=== PATIENT | male | born 1945 | race Caucasian/White ===

== ENCOUNTER 2016-11-18 07:43 | Observation (INO) | payer BC ==
[~2016-11-18 07:43] MED LIST: Buffered Lidocaine 0.9% SYRIN* 5 ML/SYR SYRINGE INTRADERM ONE
[2016-11-18] MEDS ORDERED: Buffered Lidocaine 0.9% SYRIN* 5 ML/SYR SYRINGE ONE (08:16)
[2016-11-18] MEDS ORDERED: ceFAZolin 2 GM PREMIX (*) 50 ML IVPB ONE (08:35)
[2016-11-18] MEDS ORDERED: Midazolam* 1 MG/ML 2 ML VIAL (2 MG) ONE (09:10)
[2016-11-18] MEDS ORDERED: fentaNYL* 50 MCG/ML 2 ML VIAL (100 MCG VIAL) ONE ×3 (09:10→12:40)
[2016-11-18] MEDS ORDERED: Thrombin 5,000 UNITS* 1 APPLIC KIT - topical use - TOPICAL ONE (09:47)
[2016-11-18] MEDS ORDERED: Lidocaine 1.5% EPI 1:200,000* 30 ML SDV ONE (09:47)
[2016-11-18] MEDS ORDERED: Bacitracin IV* 50,000 UNITS INJ ONE (09:47)
[2016-11-18] MEDS ORDERED: Rocuronium* 10 MG/ML VIAL ONE (10:10)
[2016-11-18] MEDS ORDERED: Famotidine IV* 10 MG/ML 2 ML (20 mg) ONE (10:33)
[2016-11-18] MEDS ORDERED: Propofol* 10 MG/ML 20 ML BTL IV PUSH ONE (10:33)
[2016-11-18] MEDS ORDERED: Dexamethasone IV* 4 MG/ML 1 ML (4 MG) ONE (10:33)
[2016-11-18] MEDS ORDERED: Lidocaine 2% PF * 5 ML VIAL ONE (10:33)
[2016-11-18] MEDS ORDERED: Ondansetron INJ* 2 MG/ML VIAL IV PRN ×2 (11:19→11:39)
[2016-11-18] MEDS ORDERED: HYDROcodone/ACETAMIN 5-325 MG* 1 TAB PO PRN (11:19)
[2016-11-18] MEDS ORDERED: Acetaminophen TAB* 325 MG PO PRN ×2 (11:19→11:39)
[2016-11-18] MEDS ORDERED: fentaNYL* 50 MCG/ML 2 ML VIAL (100 MCG VIAL) IV PRN (11:19)
[2016-11-18] MEDS ORDERED: PROCHLORPERAZINE INJ 5 MG/ML 2 ML VIAL IV PRN (11:19)
[2016-11-18] MEDS ORDERED: Dextrose 50% Syringe 50 ML* 25 GM/50 ML SYRINGE IV PUSH PRN (12:12)
[2016-11-18] MEDS ORDERED: HYDROcodone/ACETAMIN 5-325 MG* 1 TAB ONE (12:32)
--- NOTE | 2016-11-18 13:30 | CONS ---
CC: NUBIA Philippe; Dr. Hanna * DATE OF CONSULT: 11/18/2016. DATE OF ADMISSION: 11/18/2016. PRIMARY CARE PHYSICIAN: NUBIA Philippe. ATTENDING PHYSICIAN WHILE IN THE HOSPITAL: Dr. Naty Ag (report dictated by Brian Hummel NP). REQUESTING PHYSICIAN IN CONSULT: Dr. Hanna. REASON FOR CONSULTATION: Evaluation and medical management of comorbid medical problems. HISTORY OF PRESENT ILLNESS: Please refer to Dr. Hanna's history and physical for further details. In short, Mr. Moya is a 71-year-old male patient who carries a history of hypertension, hyperlipidemia, diabetes, carotid artery disease, CAD, history of HI in 2006 status post stents, he follows with Dr. Pearson for this. He comes in today for an elective L3-4 lumbar decompressive laminectomy. The patient has been following with Dr. Hanna in the outpatient setting for having some back pain that was failing conservative measures and getting progressively worse and he was having pain with walking, standing, movement improved with sitting and having pain down the right and leg leg, and unable to perform his desired activities and unable to perform job duties. He had been failing conservative therapy. He saw Dr. Hanna. He felt that he would benefit from an L3-4 laminectomy which he underwent today. The patient was evaluated in the PACU. Because of his medical complexity, we were asked to evaluate in consult. He denies having any chest pain, denies having any shortness of breath. He says he just feels a little tires. He denies having any nausea. He says he is not having any shortness of breath. He says he is not having any back pain currently and he says that he does not have any pain in his legs currently as well. Again, because of his complexity, we were asked to evaluate in consult. PAST MEDICAL HISTORY: Significant for: 1. Hypertension. 2. Hyperlipidemia. 3. Diabetes. 4. Coronary artery disease. 5. History of HI. PAST SURGICAL HISTORY: 1. He has had cardiac catheterization times two. 2. He has had back surgery. 3. He has had hernia repair. HOME MEDICATIONS: Include according to the preop list: 1. Omeprazole 20 mg daily. 2. Metformin 850 mg daily. 3. Lovastatin 40 mg daily. 4. Lisinopril/Hydrochlorothiazide one tablet p.o. daily. 5. Gabapentin 300 mg at bedtime. 6. Plavix one tablet p.o. daily. 7. Aspirin one tablet daily, of which he stopped 7 days prior to the surgery. ALLERGIES TO MEDICATIONS: There are no known drug allergies. FAMILY HISTORY: His mother had a history of diabetes and dementia. Father had a history of HI. SOCIAL HISTORY: He is a former smoker. He does not drink alcohol. He is with children. Surrogate decision maker is his . REVIEW OF SYSTEMS: There is no documented fever. He denied having any significant weight change. There was no double vision. There was no ear discharge. He denies having any rhinorrhea. There is no shortness of breath. He denies having any abdominal pain. There was no nausea, no vomiting. There was no dysuria, there was no frequency. There is no seizure, there was no loss of consciousness. There was no pruritus and no skin ulcerations. Review of 14 systems completed, all others negative. PHYSICAL EXAM: General: Mr. Moya is a 71-year-old male patient. He is evaluated in the PACU bed. He does not appear to be in any acute distress. Vital Signs: Blood pressure 101/68, pulse 66, respirations 18, O2 sat 98 percent on 2 liters, temperature 97.0. HEENT: Head atraumatic. Eyes: Sclerae anicteric, not pale, pupils reactive to light. Throat: Oral mucosa appears to be moist, no oropharyngeal erythema. Neck: Supple. Heart sounds: S1, S2. Regular rate and rhythm. No murmurs or gallops. Lungs: Clear to auscultation. No wheezes, rales or rhonchi. Abdomen: Soft, flat, bowel sounds hypoactive. Extremities: Pulses 2+ throughout. He can move his extremities with 5/5 strength. Neurologically: He is awake, alert and oriented times three. He is following commands appropriately. Fabrication Inspector are equal. Tongue midline. He had no gross oral deficits. Skin: Grossly intact with the exception to the lower lumbar spine area. He does have a dressing with a SOHAM drain which is clean, dry and intact. DIAGNOSTIC STUDIES/LAB DATA: Lab preoperatively reveal a sodium 135, potassium 5.3, chloride 107, bicarb 26, BUN 29, creatinine 1.13, glucose 97. He had a preop WBC of 6.8, RBC 4.14, hemoglobin 12.7, hematocrit 38, platelet count 217. He had a preop EKG which showed a sinus bradycardia with a rate of 46. No ST elevation or T-wave inversions were noted. Preop chest x-ray showed no active disease. Old medical records were reviewed. 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 Lexiscan nuclear stress test 2014 showed an EF of 55 percent, no ischemia infarct, asymptomatic. ASSESSMENT AND PLAN: Mr. Moya is a 71-year-old male patient with multiple medical problems, presenting to Dr. Hanna's services today for an elective laminectomy to the L3-4 region of his spine. We were asked to evaluate in consult. Recommendations at this point are: 1. Status post L3-4 laminectomy: I will defer the management of this to Dr. Hanna and his team. 2. Hypertension: His blood pressure here postop has been right around 100 systolic to 96 systolic. I am going to hold his Lisinopril and Hydrochlorothiazide. We can restart this later on in the postoperative setting if his blood pressure does improve. For now we will hold it. 3. Hyperlipidemia: Will continue his Lovastatin. 4. Diabetes: I am going to put him on Lispro sliding scale. When he is discharged, he can go back on his Metformin. 5. Carotid artery disease: I would recommend continuing the Lovastatin and Surgery did continue his aspirin. When it is appropriate, I would get him back on his Plavix, but I will defer that timing to Dr. Hanna and his team. 6. DVT prophylaxis: Will defer to the primary team. 7. Fluid and nutrition: I would recommend a consistent carb diet. 8. Code status: He is a full code. TIME SPENT ON CONSULT: 60 minutes, greater than half that time was spent face-to - face with the patient obtaining my history and physical, other time spent going over the plan of care with the patient and implementing plan of care. I did discuss the plan of care with my attending, Dr. Ag, who is in agreement. BRIAN HUMMEL NP [id number]/[facility] #: [id number] SANDRA
--- NOTE | 2016-11-18 13:40 | RAD ---
INDICATION: Decompressive L3-L4 laminectomy. COMPARISON: October 03, 2016 MRI. Prone crosstable lateral lumbar sacral spine 0934 hours. Tissue retractor and instrument at the level of the L3-L4 facet joints. Multilevel facet joint osteoarthritis. Advanced L5-S1 disc space narrowing. IMPRESSION: Interoperative control films.
[2016-11-18] MEDS: HYDROcodone/ACETAMIN 5-325 MG* 1 TAB PO PRN ×2 (18:19→22:17)
[2016-11-18] MEDS: Insulin LISPRO* 1 UNITS UNIT SUBCUT SCH (18:20)
[2016-11-19] MEDS: HYDROcodone/ACETAMIN 5-325 MG* 1 TAB PO PRN ×2 (03:14→08:17)
[2016-11-19 06:02] LABS: Hematocrit 32 % (42-52); Hemoglobin 11.4 g/dl (14.0-18.0); Mean Corpuscular HGB Conc 35 g/dl (31-36); Mean Corpuscular Hemoglobin 32 pg (27-31); Mean Corpuscular Volume 89 fL (80-94); Mean Platelet Volume 7 um3 (7.4-10.4); Red Blood Count 3.61 10^6/ul (4.0-5.4); Red Cell Distribution Width 13 % (10.5-15); White Blood Count 10.6 10^3/ul (3.5-10.8)
[2016-11-19 06:29] LABS: BUN/Creatinine Ratio 28.3 (8-20); Calcium 8.9 mg/dL (8.6-10.3); EGFR African American 95.8 (>60); EGFR Non-African American 74.5 (>60); Potassium 3.9 mmol/L (3.5-5.0)
--- NOTE | 2016-11-19 07:55 | PN ---
Progress Note - Progress Note Date of Service: 11/19/16 SOAP: Subjective: [This is a 71 year old male s/p decompressive lumbar laminectomy L3-4 and lumbar discectomy L3-4 on the right, POD #1. He is feeling well this morning and only complains of soreness at the incision site. He has been ambulating independently. Pre-operative symptoms are improved. He is eating and drinking without difficulty. Denies headache. Denies numbness, tingling, weakness and pain in the bilateral lower extremities. Pain is well controlled with oral pain medication. ] Objective: [ Vital Signs: Temp Pulse Resp BP Pulse Ox 97.8 F 56 16 104/46 96 11/19/16 03:21 11/19/16 03:21 11/19/16 05:14 11/19/16 03:21 11/19/16 03:21 General: Alert and oriented. Neuro: Motor and sensory intact. Incision: Intact with mary. No infection. SOHAM drain removed today. Extremities: Full ROM. SOHAM drain output 11/18/16 11/18/16 11/18/16 14:53 18:24 22:15 Output, SOHAM #1 40 40 35 11/19/16 11/19/16 11/19/16 00:00 03:00 06:00 Output, SOHAM #1 5 20 5 ] Assessment: [Satisfactory post-op course. ] Plan: [1. Discharge home today. 2. Discharge instructions including would care and activity level discussed with the patient. ]
[2016-11-19 08:07] VITALS: BP 115/56
[2016-11-19] MEDS ORDERED: HCTZ PO SCH (09:00)
[2016-11-19] MEDS ORDERED: Atorvastatin* 10 MG TAB PO SCH (09:00)
[2016-11-19] MEDS ORDERED: Aspirin Low Dose CHEW TAB* 81 MG PO SCH (09:00)
[2016-11-19] MEDS ORDERED: LISINOPRIL PO SCH (09:00)
[2016-11-19] MEDS ORDERED: Omeprazole CAP* 20 MG PO SCH (09:00)
[2016-11-19] MEDS: Insulin LISPRO* 1 UNITS UNIT SUBCUT SCH (09:11)
--- NOTE | 2016-11-26 10:31 | OP ---
OPERATIVE REPORT: DATE OF OPERATION: 11/18/16 DATE OF : 45 PRIMARY SURGEON: Dawson Hanna MD. RECORDS MANAGEMENT TECHNICIAN: NUBIA Rutherford. ANESTHESIA: General. PRE-OP DIAGNOSIS: Lumbar spinal stenosis, L3-4. POST-OP DIAGNOSIS: Lumbar spinal stenosis, L3-4, herniated nucleus pulposus at L3- 4 on the right. OPERATIVE PROCEDURE: Lumbar decompressive laminectomy, L3-4, with lumbar diskectomy at L3-4 on the right with microdissection. DESCRIPTION OF PROCEDURE: After satisfactory general anesthesia was obtained, the patient was place d on the operating table in a prone position with the chest supported on the Mina frame and the ba ck slightly flexed. The lumbar region was then clipped, prepped, and draped in a sterile manner for lumbar laminectomy, and skin incision outlined from L3 to L4. This incision was infiltrated with 1 % Xylocaine with epinephrine, after which it was turned down sharply to the level of the lumbar fasc ia. The fascia was divided along the spinous processes of L3 and L4 and the paraspinal musculature stripped away from these posterior elements using the periosteal elevator and monopolar cautery. An intraoperative x-ray was obtained, verifying the proper interspace localization, after which a deco mpression was carried out by removing the spinous process of L3 as well as the superior aspect of sp inous process of L4. A decompression was carried superiorly until attachment of ligamentum flavum w as taken down. The pathology at this level was a combination of thickened ligamentum flavum as well as bony facet hypertrophy. The decompression was then carried laterally and inferiorly until both L4 nerve roots were noted to be free in their course. In palpating beneath the L4 nerve root on the right side, there was noted to be definite disk herniation. At this point of the procedure, the op erating microscope was brought onto the field and a diskectomy carried out utilizing microdissection . Projecting beneath the L4 nerve root was a subcapsular herniation of disk material. An opening w as then made in the posterior longitudinal ligament and multiple fragments of disk removed from this level. It was felt that a satisfactory decompression had been achieved. After assuring adequate h emostasis, the wound was thoroughly irrigated, after which a drain was placed in the epidural space and tunneled out toward the right side. The fascia was then reapproximated with 0 Vicryl suture and the subcutaneous tissue was closed with 3-0 Vicryl suture, and the skin closed with skin clips. Th e estimated blood loss was less than 50 cc and the final sponge, padding, and needle counts were cor rect. The patient was taken to the recovery room, extubated, and in stable condition. [id number]/[facility] #: [id number]
--- NOTE | 2016-12-04 02:31 | DS ---
DISCHARGE SUMMARY: DATE OF ADMISSION: 11/18/16 DATE OF DISCHARGE: 11/19/16 PROVIDER: Dr. Hanna * (dictated by NUBIA Farmer) DISCHARGE DIAGNOSES: 1. Lumbar spinal stenosis, L3-4. 2. Hypertension. 3. Diabetes, type 2. 4. Hyperlipidemia. 5. Coronary artery disease with stenting. SPECIAL PROCEDURES: Decompressive lumbar laminectomy, L3-4, and lumbar diskectomy at L3-4 on the right. HOSPITAL COURSE: This 71-year-old male was seen in office with complaint of right- sided lumbar radiculopathy consistent with MRI findings, lumbar spinal stenosis at L3-4 and a component of herniated disk at L3-4 on the right. He had failed to improve with conservative treatment and was admitted at this time for elective surgical intervention. On the day of admission, he was taken to the surgery where under general anesthesia, a decompressive lumbar laminectomy at L3-4 and lumbar diskectomy at L3-4 on the right operation was carried out. Postoperatively, he is feeling well. He is ambulating independently. Preoperative lower extremity pain was improving. Postoperative incisional pain was well controlled with oral pain medication. He is eating, drinking, and voiding without difficulty. On the first postoperative day, the SOHAM wound drain was removed without complication. He was discharged home to the care of his family on postop day #1. DISCHARGE INSTRUCTIONS: Wound care and activity level were discussed with the patient and information was provided. FOLLOWUP: He will be seen in office in 7 to 10 days for followup and staple removal. DISCHARGE MEDICATIONS: [place] 5/325 mg 1 to 2 tabs by mouth every 4 hours as needed for pain. He was also instructed on when to restart the Plavix. NUBIA FARMER [id number]/[facility] #: [id number] [facility]ERNatividad
== END 2016-11-19 11:45 | disposition home or self-care (01) ==
LOC: OR 07:43 → SSU 13:45
PROVIDERS: ADMIT Neurological Surgery; ATTEND Neurological Surgery
PROC: 01NB0ZZ Release Lumbar Nerve, Open Approach (ICD-10-PCS; 2016-11-18)
PROC: 0SB20ZZ Excision of Lumbar Vertebral Disc, Open Approach (ICD-10-PCS; principal; 2016-11-18 09:30)
DX: M51.16 Intervertebral disc disorders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, lumbar region (principal); M48.06 Spinal stenosis, lumbar region; I10 Essential (primary) hypertension; E78.5 Hyperlipidemia, unspecified; E11.9 Type 2 diabetes mellitus without complications; I25.10 Atherosclerotic heart disease of native coronary artery without angina pectoris; I25.2 Old myocardial infarction; Z79.899 Other long term (current) drug therapy; Z87.891 Personal history of nicotine dependence; Z79.84 Long term (current) use of oral hypoglycemic drugs
CPT/HCPCS: 36415; 72100; 80048; 85025; 88304; 96374; 96375; A9270-GY; G0378; J0690; J1100; J2250; J2704; J3010

== ENCOUNTER 2018-04-30 10:08 | Emergency (ER) | payer BC ==
--- OUTSIDE RECORDS SUMMARY | 2018-04-30 10:21 | XMS REPORT | Continuity of Care Document ---
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 Rima Arellano RPAC Primary Care Physician Unavailable Payers Type Date Identification Numbers Payment Provider Subscriber Policy Number: [id number] [facility] Rip Moya PayID: [id number] [address] [place] [address] Expires: 2014 Policy Number: [id number] [facility] Rip Moya PayID: [id number] [address] [place] [address] Advance Directives Description No Information Available Problems Date Description Provider Status Onset: 12/02/2013 Diabetes mellitus Rima Arellano RPAC Active Note: ~2007 Onset: 03/11/2011 Hyperlipidemia Rima Arellano RPAC Active Onset: 03/11/2011 Coronary arteriosclerosis Rima Arellano RPAC Active Onset: 03/11/2011 Benign essential hypertension Rima Arellano RPAC Active Onset: 04/21/2017 Hand joint pain Osvaldo Rojas M.D. Active Onset: 04/21/2017 Wrist joint pain Osvaldo Rojas M.D. 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 Resolved: 01/29/2015 Onset: 04/16/2012 Disorder of lumbar disc Rima Arellano [facility] Resolved Resolved: 12/28/2016 Family History Date Family Member(s) Problem(s) Comments General No known family history of CAD. 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 Unknown Smoking Status Reviewed: 04/08/18 Quit smoked 45 yrs. ETOH Use Denies alcohol use Tobacco Use Start: Unknown End: Patient is a former Unknown smoker Recreational Drug Use Never Used Drugs Exercise Type/Frequency Exercises regularly Allergies, Adverse Reactions, Alerts Description No Known Drug Allergies Medications Medication Date Status Form Strength Qnty SIG Indications Ordering Provider Metformin HCL ER 02/05 Active Tablets 500mg 90tab 1 tab by Mcleod ER 24HR s mouth Herber, every M.D. morning Lisinopril-Hydroc 02/01 Active Tablets 20-12.5mg 60tab take 2 Harsha hlorothiazide s tablets Herber, daily M.D. Multivitamin 01/05 Active Tablets With Iron 100ta 1 by D64.9 Harsha, Adult bs mouth Herber, every day M.D. Methotrexate 01/05 Active Tablets 2.5mg 45tab 5 tablets M06.4 Mcleod, s by mouth Herber, once a M.D. week Folic Acid 01/05 Active Tablets 1mg 30tab 1 by M06.4 Mcleod, s mouth Herber, every day M.D. Atorvastatin 05/09 Active Tablets 40mg 90tab 1 by Harsha, Calcium s mouth Herber, every day M.D. on hold 12/04/17 Gabapentin 04/30 Active Capsules 300mg 120ca 1-2 caps M79.673 ps by mouth Herber, twice a M.D. day Omeprazole 11/02 Active Capsules 20mg 90cap take [address] meraz capsule Herber, daily M.D. Clopidogrel 10/24 Active Tablets 75mg 90tab Take 1 Mcleod, Bisulf s Tablet Herber, Daily M.D. Aspirin Ec Active Tablets 81mg 30tab 1 po qd Inoenko, / DR kt Jama M.D., [facility] Erythromycin 12/23 Hx Ointment 5mg/GM 3.500 thin Mcleod gm ribbon Herber, - left eye M.D. 01/31 2 times daily for 4 days Famciclovir 12/17 Hx Tablets 500mg 30tab take one Mcleod s tablet by Herber, - mouth M.D. 02/01 times a day Acyclovir 12/12 Hx Tablets 800mg take one Mcleod tablet by Herber, - mouth M.D. 12/17 every hrs till complete, MDD=5 Irbesartan 12/04 Hx Tablets 75mg 30tab 1 by Harsha, s mouth Herber, - every day M.D. 02/01 Methotrexate 07/06 Hx Tablets 2.5mg 5 tabs po Yenifer once per MD Xochitl - week 12/04 Prednisone 07/06 Hx Tablets 5mg 3 tabs by Yenifer, mouth MD Xochitl - every day 12/04 for days Pred 06/30 Hx Mcleod, Herber, - M.D. 06/30 Methylprednisolon 06/30 Hx Tablets 4mg 14tab 1 tab by Harsha, e s mouth Herber, - twice a M.D. Prednisone 05/11 Hx Tablets 5mg 3 tabs by Peggy, mouth Genevieve, - every day MD 05/24 for days Tramadol 04/29 Hx Tablets 37.5-325m 56tab 1-2 tabs G56.03 Mcleod, Hydrochloride/Edd g s by mouth Herber, taminophen - every 6 M.D. 12/04 hours for /2018 hand pain as needed ::: mdd 8 Prednisone 04/21 Hx Tablets 20mg 10tab 2 tab by Bob, s mouth Osvaldo, every day M.D. for 5 days Metformin HCL ER 01/09 Hx Tablets 500mg 90tab 1 tab by Harsha, ER 24HR s mouth Herber, - every M.D. 02/01 [place] 10/27 Hx Tablets 5-325mg 60tab 1 tab by Harsha, s mouth Herber, every 4 M.D. hours as needed for severe back/hip pain Zostavax 02/12 Hx Solution [id number]/ 1unit for sq Mathew Joshi Rec 0.65ML s use x 1 E., DO - 06/24 Ammonium Lactate 05/29 Hx Lotion 12% 225gm thin M79.673 David Joshi layer to E., DO - feet bid 10/31 Atorvastatin 05/09 Hx Tablets 40mg 90tab Take 1 Harsha Calcium s Tablet Herber, Daily M.D. Gabapentin 03/27 Hx Capsules 100mg 60cap take 1 to M79.673 David Joshi s 2 E., DO - capsules 04/30 by mouth /2015 at bedtime for foot pain/ting ling Prilosec OTC 10/24 Hx Tablets 20mg 90tab take one David Joshi s tablet by E., DO - mouth 11/02 once a day Atorvastatin 10/24 Hx Tablets 40mg 90tab take 1 David Joshi s tablet E., DO - daily 05/09 Lisinopril-Hydroc 10/24 Hx Tablets 20-12.5mg 60tab take 2 carlos Mcleodorothiazide /2014 s tablets Herber, - daily M.D. 12/04 Ibuprofen 05/16 Hx Capsules 200mg 4 caps po Radha, /2014 q day Meme Smith MD 10/31 Lisinopril/Hydroc 05/12 Hx Tablets 20-12.5 60tab take 2 zara Garciaazide s tablets Sarah, - daily 09/12 Acetaminophen-Cod 01/25 Hx Tablets 300-30mg 20tab Moheimani, eine #3 s Dean Ambrose M.D. 09/12 Baby Aspirin Hx Chewtabs 81mg 1 po qd Unknown /0000 - 09/12 Plavix Hx Tablets 75mg 90tab 1 po qd Unknown /0000 s - 10/24 Prilosec Hx Capsules 20mg 30cap 1 po qd Unknown /0000 s - 10/24 Lisinopril/Hydroc Hx Tablets 20-25mg 90tab one tab David Joshi hlorothiazide /0000 s by mouth E., DO - every day 10/24 Lovastatin Hx Tablets 40mg 90tab 1 by David Joshi /0000 s mouth E., DO - every day 10/24 Atenolol Hx Tablets 25mg 45tab Take 1 R00.1 Mcleod, /0000 s Tablet On [facility], - Thursday, M.D. 11/07 , And Thursday Metformin HCL 00 Hx Tablets 850mg 90tab Take 1 Mcleod, /0000 s Tablet Herber, - Daily M.D. 01/09 Metformin HCL 0000 Hx Tablets 850mg take one Unknown /0000 tablet by - mouth 02/05 twice a day Immunizations CPT Code Status Date Vaccine Reaction Lot # [id number] Given 01/05/2018 Influenza Virus Vaccine, Quadrivalent, 36 [id number] Mos+, .5ML 54610 Given 12/25/2016 Influenza Virus Vaccine Quadrivalent Iiv4 [place] [id number] [address] Given 09/24/2016 Tdap injection [id number] Q2038 Given 01/23/2015 Influenza Vaccine (Fluzone) Age 3 And Older 01602 Given 01/23/2015 Pneumococcal Conjugate Vaccine 13 Valent For Intramuscular Use Q2038 Given 01/22/2015 Influenza Vaccine (Fluzone) Age 3 And Older 68617 Given 01/22/2015 Pneumococcal Conjugate Vaccine 13 Valent For Intramuscular Use Vital Signs Date Vital Result Comment 04/08/2018 9:34am BP Systolic Sitting Left Arm 114 mmHg BP Diastolic Sitting Left Arm 76 mmHg Body Temperature 98.6 F Heart Rate 84 /min Respiratory Rate 18 /min Height 68 inches 5'8" Weight 181.00 lb BMI (Body Mass Index) 27.5 kg/m2 BSA (Body Surface Area) 1.96 m2 [place] body weight in kilograms 70 kg O2 % BldC Oximetry 98 % Ra 01/05/2018 8:47am BP Systolic 139 mmHg BP Diastolic 77 mmHg Body Temperature 97.5 F Heart Rate 86 /min Respiratory Rate 18 /min Height 68 inches 5'8" Weight 184.12 lb BMI (Body Mass Index) 28.0 kg/m2 BSA (Body Surface Area) 1.97 m2 [place] body weight in kilograms 70 kg O2 % BldC Oximetry 95 % 12/17/2017 9:58am BP Systolic 124 mmHg BP Diastolic 75 mmHg Body Temperature 98.4 F Heart Rate 78 /min Respiratory Rate 18 /min Height 68 inches 5'8" Weight 181.50 lb BMI (Body Mass Index) 27.6 kg/m2 BSA (Body Surface Area) 1.96 m2 [place] body weight in kilograms 70 kg O2 % BldC Oximetry 96 % 04/29/2017 9:38am BP Systolic Sitting Left Arm 127 mmHg BP Diastolic Sitting Left Arm 73 mmHg Body Temperature 97.3 F Heart Rate 59 /min Respiratory Rate 16 /min Height 68 inches 5'8" Weight 187.00 lb BMI (Body Mass Index) 28.4 kg/m2 BSA (Body Surface Area) 1.99 m2 [place] body weight in kilograms 70 kg O2 % BldC Oximetry 97 % 04/21/2017 9:14am BP Systolic Sitting Left Arm 110 mmHg BP Diastolic Sitting Left Arm 70 mmHg Body Temperature 97.0 F Heart Rate 80 /min Respiratory Rate 16 /min Height 68 inches 5'8" Weight 188.00 lb BMI (Body Mass Index) 28.6 kg/m2 BSA (Body Surface Area) 1.99 m2 [place] body weight in kilograms 70 kg 12/25/2016 9:14am BP Systolic Sitting Right Arm 128 mmHg BP Diastolic Sitting Right Arm 76 mmHg Heart Rate 64 /min Respiratory Rate 18 /min Height 68 inches 5'8" Weight 183.00 lb BMI (Body Mass Index) 27.8 kg/m2 BSA (Body Surface Area) 1.97 m2 [place] body weight in kilograms 70 kg O2 % BldC Oximetry 97 % ra 11/07/2016 8:56am BP Systolic Sitting Right Arm 126 mmHg BP Diastolic Sitting Right Arm 74 mmHg Heart Rate 46 /min Respiratory Rate 16 /min Height 68 inches 5'8" Weight 181.00 lb BMI (Body Mass Index) 27.5 kg/m2 BSA (Body Surface Area) 1.96 m2 [place] body weight in kilograms 70 kg 09/24/2016 12:01pm BP Systolic Sitting Right Arm 132 mmHg BP Diastolic Sitting Right Arm 70 mmHg Heart Rate 58 /min Height 68 inches 5'8" Weight 178.25 lb BMI (Body Mass Index) 27.1 kg/m2 BSA (Body Surface Area) 1.95 m2 [place] body weight in kilograms 70 kg O2 % BldC Oximetry 97 % 06/24/2016 9:39am BP Systolic Sitting Right Arm 122 mmHg BP Diastolic Sitting Right Arm 68 mmHg Height 68 inches 5'8" Weight 187.38 lb BMI (Body Mass Index) 28.5 kg/m2 BSA (Body Surface Area) 1.99 m2 02/13/2016 9:07am BP Systolic Sitting Right Arm 128 mmHg BP Diastolic Sitting Right Arm 74 mmHg Height 68 inches 5'8" Weight 188.12 lb BMI (Body Mass Index) 28.6 kg/m2 BSA (Body Surface Area) 1.99 m2 10/09/2015 9:51am BP Systolic Sitting Right Arm 124 mmHg BP Diastolic Sitting Right Arm 74 mmHg Heart Rate 72 /min Height 68 inches 5'8" Weight 187.00 lb BMI (Body Mass Index) 28.4 kg/m2 BSA (Body Surface Area) 1.99 m2 O2 % BldC Oximetry 96 % 05/30/2015 10:53am BP Systolic 122 mmHg BP Diastolic 74 mmHg Height 68 inches 5'8" Weight 192.00 lb BMI (Body Mass Index) 29.2 kg/m2 BSA (Body Surface Area) 2.01 m2 03/27/2015 10:36am BP Systolic Sitting Left Arm 134 mmHg BP Diastolic Sitting Left Arm 74 mmHg Height 68 inches 5'8" Weight 199.12 lb BMI (Body Mass Index) 30.3 kg/m2 BSA (Body Surface Area) 2.04 m2 01/29/2015 10:06am BP Systolic 126 mmHg BP Diastolic 72 mmHg Height 68 inches 5'8" Weight 194.00 lb BMI (Body Mass Index) 29.5 kg/m2 BSA (Body Surface Area) 2.02 m2 09/13/2014 9:59am BP Systolic 111 mmHg BP Diastolic 66 mmHg Heart Rate 62 /min Height 68 inches 5'8" Weight 190.00 lb BMI (Body Mass Index) 28.9 kg/m2 BSA (Body Surface Area) 2.00 m2 05/16/2014 10:28am BP Systolic 112 mmHg BP Diastolic 66 mmHg Height 69 inches 5'9" Weight 194.00 lb 12/14/2013 10:54am BP Systolic Sitting Right Arm 118 mmHg BP Diastolic Sitting Right Arm 64 mmHg Heart Rate 60 /min Respiratory Rate 18 /min Height 69 inches 5'9" Weight 187.00 lb BMI (Body Mass Index) 27.6 kg/m2 BSA (Body Surface Area) 2.01 m2 12/02/2013 10:21am BP Systolic 132 mmHg BP Diastolic 76 mmHg Height 69 inches 5'9" Weight 187.00 lb 06/20/2013 11:10am BP Systolic 146 mmHg BP Diastolic 78 mmHg Height 69 inches 5'9" Weight 185.00 lb 12/08/2012 11:09am BP Systolic 120 mmHg BP Diastolic 70 mmHg Weight 186.00 lb 04/12/2012 9:00am BP Systolic 130 mmHg BP Diastolic 74 mmHg Weight 195.00 lb 01/26/2012 8:56am BP Systolic 148 mmHg BP Diastolic 78 mmHg 01/09/2012 8:59am BP Systolic 138 mmHg BP Diastolic 98 mmHg Heart Rate 64 /min Height 69 inches 5'9" Weight 190.00 lb 07/10/2011 9:18am BP Systolic 136 mmHg BP Diastolic 72 mmHg Height 69 inches 5'9" Weight 188.00 lb 03/11/2011 9:38am BP Systolic 118 mmHg BP Diastolic 70 mmHg Heart Rate 70 /min Height 69 inches 5'9" Weight 186.00 lb 01/09/2010 11:58am BP Systolic Sitting Left Arm 125 mmHg BP Diastolic Sitting Left Arm 69 mmHg Heart Rate 57 /min Height 69 inches 5'9" Weight 195.00 lb BMI (Body Mass Index) 28.8 kg/m2 Results Test Date Facility Test Result H/L Range Note Urine Dipstick 01/05/2018 [facility] Ua Color Yellow Yellow Ua Clarity Clear Clear Ua Leuko Negative Negative Ua Nitrite Negative Negative Ua Urobilinogen + Low 0.2 - 1.0 E.U./dL Ua Protein + Negative Ua PH 7.5 6.5-7.5 Ua Blood Negative Negative Ua Specific Depue 1.015 1.010-1.030 Ua Ketones Negative Negative Ua Bilirubin Negative Negative Ua Glucose Negative Negative Microalbumin,Random 01/05/2018 [facility] Microalbumin,Urine < 6.0 < 20.0 [address] mg/[place] [address] [phone] Vitamin B12 And Folate 12/17/2017 [facility] Vitamin B12 458 N 193-[address] pg/mL 6 [place], [place] [id number] [phone] Folic Acid > 20.0 ng/mL High 3.1-17.5 Laboratory test 12/17/2017 [facility] Prostate Specific 0.39 ng/mL < 4.0 [address] [place] [place] [address] [phone] LDL Cholesterol 12/17/2017 [facility] Cholesterol 175 mg/dL <200 [address] [place], [place] [id number] [phone] Triglycerides 116 mg/dL <150 5 HDL Cholesterol 29 mg/dL Low >40 6 LDL-Cholesterol 123 mg/dL < 100 7 Glycohemoglobin A1c 12/17/2017 [facility] Glycohemoglobin 6.0 % N 4.2-6.[address] (A1c) [place] [address] [phone] eAG 126 mg/dL Iron-Tibc-%Sat 12/17/2017 [facility] Serum Iron 39 g/dL Low 65-[address] [place] [address] [phone] Total Iron Binding Capacity 252 g/dL N 250-450 Transferrin %Saturation 15 % N 12-57 Serum or plasma 12/12/2017 N2N/CCD Import Serum or plasma 3.3 Low 3.4- 5.0 albumin measurement albumin measurement (mass/volume) (mass/volume) Serum carbon 12/12/2017 N2N/CCD Import Serum carbon 25 21-32 dioxide measurement dioxide measurement RDW RBC Auto-Rto 12/12/2017 N2N/CCD Import RDW RBC Auto-Rto 14.3 11.6- 15.8 RDW RBC Auto 12/12/2017 N2N/CCD Import RDW RBC Auto 45.8 36-51 Prothrombin time 12/12/2017 N2N/CCD Import Prothrombin time 13.5 12.0- 14.4 (PT) in platelet (PT) in platelet poor plasma poor plasma Potassium 12/12/2017 N2N/CCD Import Potassium 4.0 3.5-5.1 SerPl-sCnc SerPl-sCnc Platelet poor 12/12/2017 N2N/CCD Import Platelet poor 1.0 0.9-1.1 plasma plasma international international normalized rati normalized ratio (Inr) by coagulation assay (relative time) Neutrophils/leuk 12/12/2017 N2N/CCD Import Neutrophils/leuk 58.6 33.0- 73.0 NFr Bld Auto NFr Bld Auto Neutrophils # Bld 12/12/2017 N2N/CCD Import Neutrophils # Bld 3.49 1.8- 7.0 Auto Auto Monocytes/leuk NFr 12/12/2017 N2N/CCD Import Monocytes/leuk NFr 15.8 High 0.0-10.0 Bld Auto Bld Auto Serum or plasma 12/12/2017 N2N/CCD Import Serum or plasma 94 45-117 alkaline alkaline phosphatase phosphatase measurement ( measurement (enzymatic activity/volume) Serum or plasma 12/12/2017 N2N/CCD Import Serum or plasma 17 15-37 aspartate aspartate aminotransferase aminotransferase measure measurement (enzymatic activity/volume) Serum or plasma 12/12/2017 N2N/CCD Import Serum or plasma 8.4 Low 8.5- 10.1 calcium measurement calcium measurement (mass/volume) (mass/volume) Serum or plasma 12/12/2017 N2N/CCD Import Serum or plasma 0.9 0.6-1.3 creatinine creatinine measurement measurement (mass/volum (mass/volume) Serum or plasma 12/12/2017 N2N/CCD Import Serum or plasma 90 74-106 glucose measurement glucose measurement (mass/volume) (mass/volume) Serum or plasma 12/12/2017 N2N/CCD Import Serum or plasma 6.8 6.4-8.2 protein measurement protein measurement (mass/volume) (mass/volume) Serum or plasma 12/12/2017 N2N/CCD Import Serum or plasma 0.5 0.2-1.0 total bilirubin total bilirubin measurement (mass/ measurement (mass/volume) Serum or plasma 12/12/2017 N2N/CCD Import Serum or plasma 15 7-18 urea nitrogen urea nitrogen measurement measurement (mass/vo (mass/volume) Serum or plasma 12/12/2017 N2N/CCD Import Serum or plasma 16.6 urea urea nitrogen/creatinine nitrogen/creatinine mass rati mass ratio Serum sodium 12/12/2017 N2N/CCD Import Serum sodium 143 136-145 measurement measurement Alt SerPl-cCnc 12/12/2017 N2N/CCD Import Alt SerPl-cCnc 19 12-78 Protime 12/12/2017 [facility] Protime 13.5 N 12.0-14.[address] seconds [place], [place] [id number] [phone] Inr 1.0 N 0.9-1.1 10 Laboratory test 12/12/2017 [facility] Sedimentation Rate 16 mm/hr N 0-20 11 finding [address] [place] [address] [phone] CBC W/Automated 12/12/2017 [facility] White Blood Count 6.0 K/uL N 3.4-10.5 Diff [address] [place] [address] [phone] Red Blood Count 3.82 M/uL Low 4.20-5.80 Hemoglobin 11.5 gm/dL Low 12.8-17.0 Hematocrit 35.0 % Low 38.0-48.0 Mean Cell Volume 91.6 fl N 80.0-96.0 Mean Corpuscular HGB 30.1 pg N 27.0-33.0 Mean Corpuscular HGB Conc 32.9 g/dL N 31.7-36.0 Platelet Count 216 K/uL N 155-360 Red Cell Distri Width SD 45.8 fl N 36-51 Red Cell Distri Width %CV 14.3 % N 11.6-15.8 Mean Platelet Volume 9.5 fL N 6.6-10.6 Neut% 58.6 % N 33.0-73.0 Lymph % 22.9 % N 20.0-42.0 [place] % 15.8 % High 0.0-10.0 Eo% 2.4 % N 0.0-6.6 Bas% 0.3 % N 0.0-1.1 Neut# 3.49 K/uL N 1.8-7.0 Lymph # 1.36 K/uL N 1.0-4.0 [place] # 0.94 K/uL High 0.0-0.8 Eos # 0.14 K/uL N 0.0-0.5 Baso # 0.02 K/uL N 0.0-0.1 Comprehensive Metabolic 12/12/2017 [facility] Glucose 90 mg/dL N 74-[address] [place] [address] [phone] BUN 15 mg/dL N 7-18 Creatinine 0.9 mg/dL N 0.6-1.3 Glom Filtration Rate, Estimate >60 mL/min >60 If >60 mL/min >60 12 BUN/Creat 16.6 ratio Sodium 143 mmol/L N 136-145 Potassium 4.0 mmol/L N 3.5-5.1 Chloride 112 mmol/L High 98-107 Carbon Dioxide 25 mmol/L N 21-32 Anion Gap 6 mEq/L Low 8-16 Calcium 8.4 mg/dL Low 8.5-10.1 Total Protein 6.8 g/dL N 6.4-8.2 Albumin 3.3 g/dL Low 3.4-5.0 Globulin 3.5 g/dL N 1.9-4.3 Alb/Glob 0.9 ratio Bilirubin,Total 0.5 mg/dL N 0.2-1.0 Sgot/Ast 17 U/L N 15-37 SGPT/Alt 19 U/L N 12-78 Alkaline Phosphatase 94 U/L N 45-117 Laboratory test 12/12/2017 [facility] C-Reactive 3.7 High <3.[address] Protein,Quant mg/[place] [address] [phone] Albumin/Glob 12/12/2017 N2N/CCD Import Albumin/Glob 0.9 SerPl SerPl Anion Gap 12/12/2017 N2N/CCD Import Anion Gap 6 Low 8-16 SerPl-sCnc SerPl-sCnc Automated blood 12/12/2017 N2N/CCD Import Automated blood 0.02 0.0-0.1 basophil count basophil count (count/volume) (count/volume) Automated blood 12/12/2017 N2N/CCD Import Automated blood 0.14 0.0-0.5 eosinophil count eosinophil count Automated blood 12/12/2017 N2N/CCD Import Automated blood 35.0 Low 38.0- 48 hematocrit hematocrit .0 (volume fraction) (volume fraction) Automated blood 12/12/2017 N2N/CCD Import Automated blood 1.36 1.0-4.0 lymphocyte count lymphocyte count (number/volume) (number/volume) Automated blood 12/12/2017 N2N/CCD Import Automated blood 216 155-360 platelet count platelet count Automated blood 12/12/2017 N2N/CCD Import Automated blood 9.5 6.6-10. platelet mean platelet mean 6 volume volume measurement measurement Automated 12/12/2017 N2N/CCD Import Automated 30.1 27.0-33 erythrocyte mean erythrocyte mean .0 corpuscular corpuscular hemoglobin hemoglobin (mass per erythrocyte) Automated 12/12/2017 N2N/CCD Import Automated 32.9 31.7-36 erythrocyte mean erythrocyte mean .0 corpuscular corpuscular hemoglobin hemoglobin concentration measurement (mass/volume) Automated 12/12/2017 N2N/CCD Import Automated 91.6 80.0-96 erythrocyte mean erythrocyte mean .0 corpuscular corpuscular volume volume Basophils/leuk 12/12/2017 N2N/CCD Import Basophils/leuk 0.3 0.0-1.1 NFr Bld Auto NFr Bld Auto Blood 12/12/2017 N2N/CCD Import Blood 3.82 Low 4.20-5. erythrocytes erythrocytes 80 automated count automated count (number/volume) (number/volume) Blood hemoglobin 12/12/2017 N2N/CCD Import Blood hemoglobin 11.5 Low 12.8 -17 measurement measurement .0 (mass/volume) (mass/volume) Blood leukocytes 12/12/2017 N2N/CCD Import Blood leukocytes 6.0 3.4-10. automated count automated count 5 (number/volume) (number/volume) Blood monocytes 12/12/2017 N2N/CCD Import Blood monocytes 0.94 High 0.0- 0.8 automated count automated count (number/volume) (number/volume) Chloride 12/12/2017 N2N/CCD Import Chloride 112 High 98-107 SerPl-sCnc SerPl-sCnc Eosinophil/leuk 12/12/2017 N2N/CCD Import Eosinophil/leuk 2.4 0.0-6.6 NFr Bld Auto NFr Bld Auto Erythrocyte 12/12/2017 N2N/CCD Import Erythrocyte 16 0-20 sedimentation sedimentation rate by 15 minute rate by 15 minute readin reading Globulin Ser 12/12/2017 N2N/CCD Import Globulin Ser 3.5 1.9-4.3 Calc-mCnc Calc-mCnc Lymphocytes/leuk 12/12/2017 N2N/CCD Import Lymphocytes/leuk 22.9 20.0- 42 NFr Bld Auto NFr Bld Auto .0 Laboratory test 07/01/2017 [facility] Hemoglobin A1c 6.3 % High 4.0-5.6 13 finding [phone] Liver - Hepatic 07/01/2017 [facility] Total Protein 6.2 Low 6.4-8.9 Panel [phone] Globulin 2.2 g/dL N 2-4 Albumin/Globulin Ratio 1.8 N 1-3 Total Bilirubin 0.70 mg/dL N 0.2-1.0 Direct Bilirubin 0.10 mg/dL N 0.03-0.18 Indirect Bilirubin 0.6 mg/dL N 0.3-1.0 Alkaline Phosphatase 86 U/L N 34-104 Alt 14 U/L N 7-52 Ast 16 U/L N 13-39 Renal Function 07/01/2017 [facility] Sodium 141 mmol/ L N 139-145 Panel [phone] Potassium 4.4 mmol/L N 3.5-5.0 Chloride 108 mmol/L N 101-111 Co2 Carbon Dioxide 25 mmol/L N 22-32 Anion Gap 8 mmol/L N 2-11 Glucose 100 mg/dL N 70-100 Blood Urea Nitrogen 21 mg/dL N 6-24 Creatinine 0.92 mg/dL N 0.67-1.17 BUN/Creatinine Ratio 22.8 High 8-20 Calcium 9.1 mg/dL N 8.6-10.3 Phosphorus 2.8 mg/dL N 2.5-5.0 Albumin 4.0 g/dL N 3.2-5.2 Egfr Non- 80.9 >60 Egfr 104.0 >60 14 Laboratory test 07/01/2017 [facility] LDL Cholesterol 90 mg/dL 15 finding [phone] Direct Systemic Lupus 04/21/2017 [facility] Ra Latex Turbid. <10.0 IU/mL 0.0-1 16 Erythem. Profil [address] 3.9 [place], [place] [id number] [phone] Anti-Dna Antibody ([place]) 1 IU/mL 0-9 17 SM Antibody <0.2 AI 0.0-0.9 [employer] Antibody <0.2 AI 0.0-0.9 Sjogrens Antibodies (Ssa) 0.2 AI 0.0-0.9 Antichromatin Antibodies <0.2 AI 0.0-0.9 Sjogrens Antibodies (SSB) <0.2 AI 0.0-0.9 CBC 04/21/2017 [facility] White Blood Count 6.2 K/uL N 3.4-10.5 [address] [place] [address] [phone] Red Blood Count 4.14 M/uL Low 4.20-5.80 Hemoglobin 12.6 gm/dL Low 12.8-17.0 Hematocrit 37.7 % Low 38.0-48.0 Mean Cell Volume 91.1 fl N 80.0-96.0 Mean Corpuscular HGB 30.4 pg N 27.0-33.0 Mean Corpuscular HGB Conc 33.4 g/dL N 31.7-36.0 Platelet Count 240 K/uL N 155-360 Red Cell Distri Width %CV 13.8 % N 11.6-15.8 Mean Platelet Volume 10.0 fL N 6.6-10.6 Antinuclear 04/21/2017 [facility] Antinuclear Positive . 18 Antibodies, Ifa [address] E Antibodies, [place] [address] [phone] Homogeneous Pattern >1:1280 . Note (SEE NOTE) 19 Lyme AB/Western 04/21/2017 [facility] Lyme Total < 0.91 0.00-0.90 20 Blot Reflex [address] [facility] AB/Reflex [place] [address] [phone] Lyme Disease Antibody,QT,Igm < 0.80 index 0.00-0.79 21 Rheumatoid Panel 04/21/2017 [facility] Sedimentation Rate 18 mm/hr N 0-20 22 (CRM) [address] [place] [address] [phone] Uric Acid 7.1 mg/dL N 3.5-7.2 Rheumatoid Factor Screen < 10.0 IU/mL N 0.0-15.0 C-Reactive Protein,Quant 3.8 mg/L High <3.0 CBS W/Automated 12/25/2016 [facility] White Blood 6.1 K/uL N 3.4-10.5 [address] [place] [address] [phone] Red Blood Count 4.09 M/uL Low 4.20-5.80 Hemoglobin 12.6 gm/dL Low 12.8-17.0 Hematocrit 38.1 % N 38.0-48.0 Mean Cell Volume 93.2 fl N 80.0-96.0 Mean Corpuscular HGB 30.8 pg N 27.0-33.0 Mean Corpuscular HGB Conc 33.1 g/dL N 31.7-36.0 Platelet Count 240 K/uL N 150-400 Red Cell Distri Width SD 43.2 fl N 36-51 Red Cell Distri Width %CV 13.0 % N 11.6-15.8 Mean Platelet Volume 10.6 fL N 6.6-10.6 Neut% 60.1 % N 33.0-73.0 Lymph % 22.6 % N 20.0-42.0 [place] % 14.2 % High 0.0-10.0 Eo% 2.8 % N 0.0-6.6 Bas% 0.3 % N 0.0-1.1 Neut# 3.67 K/uL N 1.8-7.0 Lymph # 1.38 K/uL N 1.0-4.0 [place] # 0.87 K/uL High 0.0-0.8 Eos # 0.17 K/uL N 0.0-0.5 Baso # 0.02 K/uL N 0.0-0.1 Glycohemoglobin A1c 12/25/2016 [facility] Glycohemoglobin 6.1 % N 4.2-6.[address] (A1c) [place] [address] [phone] eAG 128 mg/dL LDL Cholesterol Profile 12/25/2016 [facility] Cholesterol 173 mg/dL <[address] [place] [address] [phone] Triglycerides 196 mg/dL High <150 26 HDL Cholesterol 37 mg/dL Low >40 27 LDL-Cholesterol 97 mg/dL < 100 28 Comprehensive Metabolic 12/25/2016 [facility] Glucose 111 mg/dL High 74-106 Panel [address] [place] [address] [phone] BUN 18 mg/dL N 7-18 Creatinine 1.1 mg/dL N 0.6-1.3 Glom Filtration Rate, Estimate >60 mL/min >60 If >60 mL/min >60 29 BUN/Creat 16.3 ratio Sodium 140 mmol/L N 136-145 Potassium 5.0 mmol/L N 3.5-5.1 Chloride 107 mmol/L N 98-107 Carbon Dioxide 28 mmol/L N 21-32 Anion Gap 5 mEq/L Low 8-16 Calcium 9.1 mg/dL N 8.5-10.1 Total Protein 7.3 g/dL N 6.4-8.2 Albumin 3.7 g/dL N 3.4-5.0 Globulin 3.6 g/dL N 1.9-4.3 Alb/Glob 1.0 ratio Bilirubin,Total 0.5 mg/dL N 0.2-1.0 Sgot/Ast 13 U/L Low 15-37 30 SGPT/Alt 24 U/L N 12-78 Alkaline Phosphatase 103 U/L N 45-117 Laboratory test 11/18/2016 [facility] Point of 123 mg /dL High 70-100 31 finding [phone] Care Glucose Basic Metabolic 11/11/2016 [facility] Sodium 139 mmol /L N 133-145 32 Panel [phone] Potassium 5.3 mmol/L High 3.5-5.0 Chloride 107 mmol/L N 101-111 Co2 Carbon Dioxide 26 mmol/L N 22-32 Anion Gap 6 mmol/L N 2-11 Glucose 97 mg/dL N 70-100 Blood Urea Nitrogen 29 mg/dL High 6-24 Creatinine 1.13 mg/dL N 0.67-1.17 BUN/Creatinine Ratio 25.7 High 8-20 Calcium 9.3 mg/dL N 8.6-10.3 Egfr Non- 64.0 N >60 Egfr 82.3 N >60 33 CBC No Diff 11/11/2016 [facility] White Blood 6.8 10^ 3/uL N 3.5-10.8 [phone] Count Red Blood Count 4.14 10^6/uL N 4.0-5.4 Hemoglobin 12.7 g/dL Low 14.0-18.0 Hematocrit 38 % Low 42-52 Mean Corpuscular Volume 91 fL N 80-94 Mean Corpuscular Hemoglobin 31 pg N 27-31 Mean Corpuscular HGB Conc 34 g/dL N 31-36 Red Cell Distribution Width 13 % N 10.5-15 Platelet Count 217 10^3/uL N 150-450 Mean Platelet Volume 8 um3 N 7.4-10.4 Microalbumin,Random 06/24/2016 [facility] Microalbumin,Urine 18.3 < 20.0 [address] mg/[place] [address] [phone] Laboratory test 06/24/2016 [facility] Slide Review . [address] [place] [address] [phone] CBS W/Automated Diff 06/24/2016 [facility] White Blood Count 9.7 N 3.4-[address] K/uL .5 [place] [address] [phone] Red Blood Count 4.30 M/uL N 4.20-5.80 Hemoglobin 13.1 gm/dL N 12.8-17.0 Hematocrit 38.8 % N 38.0-48.0 Mean Cell Volume 90.2 fl N 80.0-96.0 Mean Corpuscular HGB 30.5 pg N 27.0-33.0 Mean Corpuscular HGB Conc 33.8 g/dL N 31.7-36.0 Platelet Count TNP K/uL N 150-400 36 Red Cell Distri Width SD 40.6 fl N 36-51 Red Cell Distri Width %CV 12.7 % N 11.6-15.8 Neut% 67.6 % N 33.0-73.0 Lymph % 15.2 % Low 20.0-42.0 [place] % 9.7 % N 0.0-10.0 Eo% 7.3 % High 0.0-6.6 Bas% 0.2 % N 0.0-1.1 Neut# 6.52 K/uL N 1.8-7.0 Lymph # 1.47 K/uL N 1.0-4.0 [place] # 0.94 K/uL High 0.0-0.8 Eos # 0.70 K/uL High 0.0-0.5 Baso # 0.02 K/uL N 0.0-0.1 Comprehensive Metabolic 06/24/2016 [facility] Glucose 98 mg/dL N 74-106 Panel [address] [place] [address] [phone] BUN 31 mg/dL High 7-18 Creatinine 1.2 mg/dL N 0.6-1.3 Glom Filtration Rate, Estimate >60 mL/min >60 If >60 mL/min >60 37 BUN/Creat 25.8 ratio Sodium 143 mmol/L N 136-145 Potassium 4.7 mmol/L N 3.5-5.1 Chloride 111 mmol/L High 98-107 Carbon Dioxide 20 mmol/L Low 21-32 Anion Gap 12 mEq/L N 8-16 Calcium 8.6 mg/dL N 8.5-10.1 Total Protein 7.0 g/dL N 6.4-8.2 Albumin 3.9 g/dL N 3.4-5.0 Globulin 3.1 g/dL N 1.9-4.3 Alb/Glob 1.3 ratio Bilirubin,Total 0.4 mg/dL N 0.2-1.0 Sgot/Ast 22 U/L N 15-37 SGPT/Alt 28 U/L N 12-78 Alkaline Phosphatase 79 U/L N 45-117 Laboratory test 06/24/2016 [facility] CK 89 U/L N 39-308 finding [address] [place], [place] [id number] [phone] LDL Cholesterol 06/24/2016 [facility] Cholesterol 134 mg/dL <200 38 Profile [address] [place] [address] [phone] Triglycerides 220 mg/dL High <150 39 HDL Cholesterol 28 mg/dL Low >40 40 LDL-Cholesterol 62 mg/dL < 100 41 Glycohemoglobin 06/24/2016 [facility] Glycohemoglobin 6.6 % High 4.2-6.3 42 A1c 134 [facility] (A1c) [place] [address] [phone] eAG 143 mg/dL Laboratory 10/09/2015 [facility] Glycohemoglobin 6.8 % High 4.2-6.3 43 test finding [address] (A1c) [place] [address] [phone] BMP W/Egfr 10/09/2015 [facility] Glucose 101 74-[address] mg/[place] [address] [phone] BUN 28 mg/dL High 7-18 Creatinine 1.1 mg/dL 0.6-1.3 Glom Filtration Rate, Estimate >60 mL/min >60 If >60 mL/min >60 44 BUN/Creat 25.4 ratio Sodium 139 mmol/L 136-145 Potassium 4.3 mmol/L 3.5-5.1 Chloride 107 mmol/L 98-107 Carbon Dioxide 27 mmol/L 21-32 Anion Gap 5 mEq/L Low 8-16 Calcium 8.5 mg/dL 8.5-10.1 CBC W/Diff & PLT 10/09/2015 [facility] White Blood 7.3 K/uL 3.4-10.[address] [place] [address] [phone] Red Blood Count 4.20 M/uL 4.20-5.80 Hemoglobin 12.9 gm/dL 12.8-17.0 Hematocrit 38.1 % 38.0-48.0 Mean Cell Volume 90.7 fl 80.0-96.0 Mean Corpuscular HGB 30.7 pg 27.0-33.0 Mean Corpuscular HGB Conc 33.9 g/dL 31.7-36.0 Platelet Count 223 K/uL 150-400 Red Cell Distri Width SD 43.0 fl 36-51 Red Cell Distri Width %CV 13.3 % 11.6-15.8 Mean Platelet Volume 10.4 fL 6.6-10.6 Neut% 64.7 % 33.0-73.0 Lymph % 22.3 % 17.0-56.0 [place] % 9.8 % 0.0-10.0 Eo% 2.9 % 0.0-5.0 Bas% 0.3 % 0.1-1.0 Neut# 4.71 K/uL 1.8-7.0 Lymph # 1.62 K/uL Low 1.8-7.0 [place] # 0.71 K/uL 0.0-0.8 Eos # 0.21 K/uL 0.0-0.5 Baso # 0.02 K/uL Low 0.1-0.2 Liver - Hepatic 10/09/2015 [facility] Total Protein 7.2 g/dL 6.4-8.[address] [place] [address] [phone] Albumin 3.9 g/dL 3.4-5.0 Globulin 3.3 g/dL 1.9-4.3 Alb/Glob 1.2 ratio Bilirubin,Total 0.6 mg/dL 0.2-1.0 Bilirubin,Direct 0.1 mg/dL 0.0-0.2 Bilirubin,Indirect 0.5 mg/dL 0.0-0.9 Sgot/Ast 19 U/L 15-37 SGPT/Alt 34 U/L 12-78 Alkaline Phosphatase 94 U/L 45-117 Lipid Panel 10/09/2015 [facility] Cholesterol 163 mg/dL <[address] [place] [address] [phone] Triglycerides 263 mg/dL High <150 46 HDL Cholesterol 27 mg/dL Low >40 47 LDL-Cholesterol 83 mg/dL < 100 48 Glycohemoglobin A1c 10/09/2015 [facility] eAG [address] mg/[place] [address] [phone] Laboratory test 05/30/2015 [facility] Glycohemoglobin 6.6 % High 4.2 [address] (A1c) -6. [place] [address] 3 [phone] Glycohemoglobin A1c 05/30/2015 [facility] eAG [address] mg/[place] [address] [phone] Microalbumin,Random 05/30/2015 [facility] Microalbumin,Urine 14.0 < Urine [address] mg/L 20. [place] [address] 0 [phone] Glycohemoglobin A1c 02/07/2015 [facility] Glycohemoglobin 6.6 % High 4.[address] (A1c) -6. [place] [address] 3 [phone] eAG 143 mg/dL Liver Function Tests 02/07/2015 [facility] Total Protein 7.2 g/dL 6.4-8.2 [address] [place] [address] [phone] Albumin 4.2 g/dL 3.4-5.0 Globulin 3.0 g/dL 1.9-4.3 Alb/Glob 1.4 ratio Bilirubin,Total 0.6 mg/dL 0.2-1.0 Bilirubin,Direct 0.1 mg/dL 0.0-0.2 Bilirubin,Indirect 0.5 mg/dL 0.0-0.9 Sgot/Ast 19 U/L 15-37 SGPT/Alt 37 U/L 12-78 Alkaline Phosphatase 91 U/L 45-117 Basic Metabolic Panel 02/07/2015 [facility] Glucose 125 mg/dL High 74-106 [address] [place] [address] [phone] BUN 24 mg/dL High 7-18 Creatinine 1.0 mg/dL 0.6-1.3 Glom Filtration Rate, Estimate >60 mL/min >60 If >60 mL/min >60 51 BUN/Creat 24.0 ratio Sodium 139 mmol/L 136-145 Potassium 4.0 mmol/L 3.5-5.1 Chloride 108 mmol/L High 98-107 Carbon Dioxide 23 mmol/L 21-32 Anion Gap 8 mEq/L 8-16 Calcium 9.0 mg/dL 8.5-10.1 LDL Cholesterol Profile 02/07/2015 [facility] Cholesterol 180 mg/dL <200 52 [address] [place] [address] [phone] Triglycerides 341 mg/dL High <150 53 HDL Cholesterol 30 mg/dL Low >40 54 LDL-Cholesterol 82 mg/dL < 100 55 Laboratory test 05/16/2014 N2N/CCD Import Microalbumin,Random Urine 11.0 mg /L < 20.0 finding Basic Metabolic 05/16/2014 N2N/CCD Import Anion Gap 9 mEq/L 8-16 Panel BUN 17 mg/dL 7-18 BUN/Creat 15.4 ratio Calcium 9.2 mg/dL 8.5-10.1 Carbon Dioxide 28 mmol/L 21-32 Chloride 107 mmol/L 98-107 Creatinine 1.1 mg/dL 0.6-1.3 Glom Filtration Rate, Estimate >60 mL/min >60 Glucose 103 mg/dL 74-106 If >60 mL/min >60 56 Potassium 4.4 mmol/L 3.5-5.1 Sodium 140 mmol/L 136-145 CBS W/Automated Diff 05/16/2014 N2N/CCD Import Bas% 0.5 % 0.1-1.0 Baso # 0.03 K/uL Low 0.1-0.2 Eo% 4.0 % 0.0-5.0 Eos # 0.26 K/uL 0.0-0.5 Hematocrit 41.8 % 38.0-48.0 Hemoglobin 14.0 gm/dL 12.8-17.0 Lymph # 1.41 K/uL 1.2-4.0 Lymph % 21.5 % 17.0-56.0 Mean Cell Volume 91.7 fl 80.0-96.0 Mean Corpuscular HGB 30.7 pg 27.0-33.0 Mean Corpuscular HGB Conc 33.5 g/dL 31.7-36.0 Mean Platelet Volume 10.1 fL 6.6-10.6 [place] # 0.73 K/uL High 0.0-0.6 [place] % 11.1 % High 0.0-10.0 Neut# 4.12 K/uL 1.8-7.0 Neut% 62.9 % 33.0-73.0 Platelet Count 275 K/uL 150-400 Red Blood Count 4.56 M/uL 4.20-5.80 Red Cell Distri Width %CV 13.1 % 11.6-15.8 Red Cell Distri Width SD 42.9 fl 36-51 White Blood Count 6.6 K/uL 3.4-10.5 Glycohemoglobin A1c 05/16/2014 N2N/CCD Import Glycohemoglobin 6.4 % High 4.2-6.3 57 (A1c) eAG 137 mg/dL Laboratory test 01/20/2014 [facility] Lipoma Of Cord See Note 58 finding [address] [place] [address] [phone] Basic Metabolic 12/02/2013 N2N/CCD Import Anion Gap 11 mEq/L 8-16 Panel BUN 16 mg/dL 5-23 BUN/Creat 17.7 ratio Calcium 8.9 mg/dL 8.5-10.1 Carbon Dioxide 24 mEq/L 18-29 Chloride 110 mmol/L High 98-107 Creatinine 0.9 mg/dL 0.5-1.4 Glom Filtration Rate, Estimate >60 mL/min >60 Glucose 101 mg/dL 76-115 If >60 mL/min >60 59 Potassium 4.0 mmol/L 3.5-5.1 Sodium 141 mmol/L 136-145 CBC W/Automated Diff 12/02/2013 N2N/CCD Import Bas% 0.5 % 0.1-1.0 Baso # 0.03 K/uL Low 0.1-0.2 Eo% 4.8 % 0.0-5.0 Eos # 0.29 K/uL 0.0-0.5 Hematocrit 38.0 % 38.0-48.0 Hemoglobin 13.1 gm/dL 12.8-17.0 Lymph # 1.48 K/uL 1.2-4.0 Lymph % 24.7 % 17.0-56.0 Mean Cell Volume 92.5 fl 80.0-96.0 Mean Corpuscular HGB 31.9 pg 27.0-33.0 Mean Corpuscular HGB Conc 34.5 g/dL 31.7-36.0 Mean Platelet Volume 10.5 fL 6.6-10.6 [place] # 0.67 K/uL High 0.0-0.6 [place] % 11.2 % High 0.0-10.0 Neut# 3.52 K/uL 1.8-7.0 Neut% 58.8 % 33.0-73.0 Platelet Count 230 K/uL 150-400 Red Blood Count 4.11 M/uL Low 4.20-5.80 Red Cell Distri Width %CV 13.4 % 11.6-15.8 Red Cell Distri Width SD 44.5 fl 36-51 White Blood Count 6.0 K/uL 3.4-10.5 Glycohemoglobin A1c 12/02/2013 [facility] Import Glycohemoglobin 6.4 % High 4.8-6.0 60 (A1c) eAG 137 mg/dL LDL Cholesterol Profile 12/02/2013 N2N/CCD Import Cholesterol 132 mg/dL 120-200 HDL Cholesterol 31 mg/dL 29-83 LDL-Cholesterol 68 mg/dL 62-185 Triglycerides 167 mg/dL 16-231 Liver Function Tests 12/02/2013 N2N/[facility] Import Alb/Glob 1.3 ratio Albumin 4.1 g/dL 3.5-5.0 Alkaline Phosphatase 90 U/L 50-136 Bilirubin,Direct 0.1 mg/dL 0.1-0.4 Bilirubin,Indirect 0.4 mg/dL 0.0-0.9 Bilirubin,Total 0.5 mg/dL 0.2-1.2 Globulin 3.1 g/dL 1.9-4.3 SGPT/Alt 30 U/L 30-65 Sgot/Ast 17 U/L 16-40 Total Protein 7.2 g/dL 6.3-8.0 Laboratory test 12/02/2013 N2N/[facility] Import Microalbumin,Random 6.4 mg/L 0.0-18.5 finding Urine Laboratory test 06/20/2013 [facility] Import CK 94 U/L 26-190 finding Prostate Specific Antigen 0.64 ng/mL 0.00-4.00 61 CBC W/Automated Diff 06/20/2013 [facility] Import Bas% 0.3 % 0.1-1.0 Baso # 0.02 K/uL Low 0.1-0.2 Eo% 3.3 % 0.0-5.0 Eos # 0.24 K/uL 0.0-0.5 Hematocrit 42.2 % 38.0-48.0 Hemoglobin 14.1 gm/dL 12.8-17.0 Lymph # 1.39 K/uL 1.2-4.0 Lymph % 18.9 % 17.0-56.0 Mean Cell Volume 92.5 fl 80.0-96.0 Mean Corpuscular HGB 30.9 pg 27.0-33.0 Mean Corpuscular HGB Conc 33.4 g/dL 31.7-36.0 Mean Platelet Volume 10.2 fL 6.6-10.6 [place] # 0.68 K/uL High 0.0-0.6 [place] % 9.2 % 0.0-10.0 Neut# 5.03 K/uL 1.8-7.0 Neut% 68.3 % 33.0-73.0 Platelet Count 268 K/uL 150-400 Red Blood Count 4.56 M/uL 4.20-5.80 Red Cell Distri Width %CV 12.9 % 11.6-15.8 Red Cell Distri Width SD 42.7 fl 36-51 White Blood Count 7.4 K/uL 3.4-10.5 Glycohemoglobin A1c 06/20/2013 N2N/CCD Import Glycohemoglobin 6.6 % High 4.8-6.0 62 (A1c) eAG 143 mg/dL LDL Cholesterol Profile 06/20/2013 N2N/CCD Import Cholesterol 165 mg/dL 120-200 HDL Cholesterol 34 mg/dL 29-83 LDL-Cholesterol 73 mg/dL 62-185 Triglycerides 288 mg/dL High 16-231 Liver Function Tests 06/20/2013 N2N/CCD Import Alb/Glob 1.4 ratio Albumin 4.2 g/dL 3.5-5.0 Alkaline Phosphatase 102 U/L 50-136 Bilirubin,Direct < 0.1 mg/dL Low 0.1-0.4 Bilirubin,Indirect 0.5 mg/dL 0.0-0.9 Bilirubin,Total 0.6 mg/dL 0.2-1.2 Globulin 3.1 g/dL 1.9-4.3 SGPT/Alt 25 U/L Low 30-65 Sgot/Ast 15 U/L Low 16-40 Total Protein 7.3 g/dL 6.3-8.0 Renal Function Panel 06/20/2013 N2N/CCD Import Albumin 4.2 g/dL 3.5-5.0 Anion Gap 13 mEq/L 8-16 BUN 15 mg/dL 5-23 BUN/Creat 18.7 ratio Calcium 9.3 mg/dL 8.5-10.1 Carbon Dioxide 25 mEq/L 18-29 Chloride 106 mmol/L 98-107 Creatinine 0.8 mg/dL 0.5-1.4 Glom Filtration Rate, Estimate >60 mL/min >60 Glucose 95 mg/dL 76-115 If >60 mL/min >60 63 Phosphorous 2.9 mg/dL 2.4-4.7 Potassium 4.0 mmol/L 3.5-5.1 Sodium 140 mmol/L 136-145 Liver Function Panel 12/08/2012 N2N/CCD Import Albumin 4.3 g/dL 3.2-5.2 Albumin/Globulin Ratio 2.3 1-3 Alkaline Phosphatase 71 U/L 30-110 Alt 24 U/L 14-54 Ast 25 U/L 12-42 Direct Bilirubin 0.1 mg/dL 0.1-0.5 Globulin 1.9 g/dL Low 2-4 Indirect Bilirubin 0.7 mg/dL 0.3-1.0 Total Bilirubin 0.8 mg/dL 0.4-1.5 Total Protein 6.2 g/dL 6.2-8.1 Lipid Profile 12/08/2012 N2N/CCD Import Cholesterol 174 mg/dL Less than (Trig/Chol/HDL) 200 Cholesterol/HDL Ratio 4.5 Average High 1-4.44 HDL Cholesterol 39 mg/dL Low 40-60 64 LDL Cholesterol 104.6 High Less Than 100 65 Triglycerides 152 mg/dL 40-200 Basic Metabolic Panel 12/08/2012 N2N/CCD Import Anion Gap 6.0 mmol/L 2- 11 BUN/Creatinine Ratio 17.5 8-20 Blood Urea Nitrogen 14 mg/dL 6-24 Calcium 9.6 mg/dL 8.1-9.9 Chloride 107 mmol/L 101-111 Co2 Carbon Dioxide 26.0 mmol/L 22-32 Creatinine 0.80 mg/dL 0.50-1.40 Egfr 124.0 >60 66 Egfr Non- 96.4 >60 Glucose 114 mg/dL High 70-100 Potassium 4.3 mmol/L 3.5-5.0 Sodium 139 mmol/L 133-145 Laboratory test finding 12/08/2012 N2N/CCD Import Creatine Kinase 126 U/L 0-200 Hemoglobin A1c 6.4 % High Less than 6.0 67 Liver Function Panel 04/12/2012 N2N/CCD Import Albumin 4.3 g/dL 3.2-5.2 Albumin/Globulin Ratio 1.9 1-3 Alkaline Phosphatase 70 U/L 30-110 Alt 25 U/L 14-54 Ast 23 U/L 12-42 Direct Bilirubin 0.1 mg/dL 0.1-0.5 Globulin 2.3 g/dL 2-4 Indirect Bilirubin 0.5 mg/dL 0.3-1.0 Total Bilirubin 0.6 mg/dL 0.4-1.5 Total Protein 6.6 g/dL 6.2-8.1 Lipid Profile 04/12/2012 N2N/[facility] Import Cholesterol 184 mg/dL Less than (Trig/Chol/HDL) 200 Cholesterol/HDL Ratio 5.1 Average High 1-4.44 HDL Cholesterol 36 mg/dL Low 40-60 68 LDL Cholesterol 106.2 mg/dL High Less Than 100 69 Triglycerides 209 mg/dL High 40-200 Laboratory test finding 04/12/2012 N2N/CCD Import Creatine Kinase 116 U/L 0-200 PSA Screening 1.9 ng/mL 0-4.0 70 Laboratory test 01/09/2012 N2N/CCD Import Hemoglobin A1c 6.0 % Less than 71 finding 6.0 Basic Metabolic 01/09/2012 N2N/CCD Import Anion Gap 6.0 mmol/L 2-11 Panel BUN/Creatinine Ratio 18.8 8-20 Blood Urea Nitrogen 15 mg/dL 6-24 Calcium 9.3 mg/dL 8.1-9.9 Chloride 105 mmol/L 101-111 Co2 Carbon Dioxide 27.0 mmol/L 22-32 Creatinine 0.80 mg/dL 0.50-1.40 Egfr 124.4 >60 72 Egfr Non- 96.7 >60 Glucose 102 mg/dL High 70-100 Potassium 4.2 mmol/L 3.5-5.0 Sodium 138 mmol/L 133-145 Liver Function Panel 10/06/2011 N2N/[facility] Import Albumin 4.2 GM/DL 3.2- 5.2 Albumin/Globulin Ratio 1.8 1-3 Alkaline Phosphatase 69 U/L 39-117 Alt (SGPT) 17 U/L 17-63 Ast (Sgot) 19 U/L 12-42 Bilirubin Direct 0.1 mg/dL 0.1-0.5 Bilirubin Total 0.6 mg/dL 0.4-1.5 73 Globulin 2.3 GM/DL 2-4 Indirect Bilirubin 0.5 mg/dL 0.3-1.0 74 Total Protein 6.5 GM/DL 6.2-8.1 Lipid Profile 10/06/2011 N2N/CCD Import Cholesterol 177 mg/dL Less Than 75 (Trig/Chol/HDL) 200 Cholesterol/HDL Ratio 5.06 AVERAGE High 1-4.97 High Density Lipoprotein 35 mg/dL Low 40-60 76 Low Density Lipoprotein 109 mg/dL High Less Than 100 77 Triglyceride 165 mg/dL 40-200 Basic Metabolic Panel 10/06/2011 N2N/CCD Import Anion Gap 8.0 mmol/L 2- 11 78 BUN 16 mg/dL 6-24 BUN/Creatinine Ratio 17.8 8-20 Calcium 9.2 mg/dL 8.1-9.9 Chloride 105 mmol/L 101-111 Co2 (Carbon Dioxide) 25.0 mmol/L 22-32 Creatinine 0.9 mg/dL 0.50-1.40 Glucose 109 mg/dL High 70-100 One Over Creatinine 1.11 Potassium 4.0 mmol/L 3.5-5.0 Sodium 138 mmol/L 135-145 eGFR 108.6 > 60 79 eGFR Non- 84.4 > 60 Laboratory test 10/06/2011 [employer] Import CPK (Creatine 126 U/L 0-200 finding Kinase) Hemoglobin A1c 6.1 % High Less Than 6.0 80 Liver Function Tests 03/11/2011 N2N/[facility] Import Alb/Glob 1.7 ratio Albumin 4.4 g/dL 3.5-5.0 Alkaline Phosphatase 70 U/L 50-136 Bilirubin,Direct 0.1 mg/dL 0.1-0.4 Bilirubin,Indirect 0.5 mg/dL 0.0-0.9 Bilirubin,Total 0.6 mg/dL 0.2-1.2 Globulin 2.6 g/dL 1.9-4.3 SGPT/Alt 29 U/L Low 30-65 Sgot/Ast 15 U/L Low 16-40 Total Protein 7.0 g/dL 6.3-8.0 LDL Cholesterol Profile 03/11/2011 [employer] Import Cholesterol 177 mg/dL 120-200 HDL Cholesterol 36 mg/dL 29-83 LDL-Cholesterol 115 mg/dL 62-185 Triglycerides 129 mg/dL 16-231 Glycohemoglobin A1c 03/11/2011 N2N/[facility] Import Glycohemoglobin 6.8 % High 4.8-6.0 81 (A1c) eAG 148 mg/dL CBC/Manual Differential 03/11/2011 [employer] Import Band% 1 % 0-8 Eosinophil% 5 % 0-5 Hematocrit 40.4 % 38.0-48.0 Hemoglobin 13.9 gm/dL 12.8-17.0 Lymph% 27 % 17-56 Mean Cell Volume 90.2 fl 80.0-96.0 Mean Corpuscular HGB 31.0 pg 27.0-33.0 Mean Corpuscular HGB Conc 34.4 g/dL 31.7-36.0 Mean Platelet Volume 9.9 fL 6.6-10.6 Monocyte% 12 % High 0-10 Neutrophils% 55 % 33-73 Platelet Count 269 K/uL 150-400 Platelet Estimate Normal RBC Morphology Normal Red Blood Count 4.48 M/uL 4.20-5.80 Red Cell Distri Width %CV 12.9 % 11.6-15.8 Total Cells Counted 100 #CELLS White Blood Count 5.6 K/uL 3.4-10.5 Laboratory test finding 03/11/2011 N2N/CCD Import CK 144 U/L 26-190 1 Z00.01 E11.9 2 D64.9 E11.9 E78.9 B02.9 R35.0 3 THIS ASSAY IS NOT INTENDED A CANCER SCREENING TEST The concentration of PSA in a given specimen, determined with assays from different manufacturers, can vary due to differences in assay methods and reagent specificity. Values obtained from different assay methods cannot be used interchangeably. Method: Pinchdta Chemiluminescent immunoassay. 4 Reference Guidelines*: Desirable: ........... < 200 mg/dL Borderline High: ..... 200-239 mg/dL High: ................ >=240 mg/dL * The National Cholesterol Education Program (NCEP) 5 Reference Guidelines*: Normal: ............. < 150 mg/dL Borderline High: .... 150-199 mg/dL High: ............... 200-499 mg/dL Very High: .......... > 500 mg/dL * Source: National Cholesterol Education Program (NCEP) 6 Reference Guidelines*: Low HDL: ..... < 40 mg/dL Normal: ..... 40-60 mg/dL Desirable: ... > 60 mg/dL *The National Cholesterol Education Program(NCEP) 7 Reference Guidelines*: Optimal:........... <100 mg/dL Near Optimal....... 100-129 mg/dL Borderline High.... 130-159 mg/dL High............... 160-189 mg/dL Very High.......... >=190 mg/dL * Source: National Cholesterol Education Program (NCEP) 8 Elevated levels of HbA1c suggest the need for more aggressive treatment of glycemia. The [place] [employer] recommends that a primary goal of therapy should be a HbA1c of <7% and that physicians should re-evaluate the treatment regimen in patients with HbA1c values consistently >8%. 9 BLUNT X WEEK, SPIDER BITE? 10 THERAPEUTIC INR RANGE: 2.0 - 3.0 DVT, Pulmonary embolus, prophylaxis against venous thrombosis or systemic embolization in high risk patients. 2.5 - 3.5 Mechanical heart valves 11 Method: Sediplast Modified Westergren 12 Note: Persistent reduction for 3 months or more in an eGFR <60 mL/min/1.73 m2 defines CKD. Patients with eGFR values >/=60 mL/min/1.73 m2 may also have CKD if evidence of persistent proteinuria is present. The original MDRD equation for estimated GFR is not valid for patients less than 18 years of age. Additional information may be found at www.kdoqi.org. 13 Therapeutic target for the treatment of diabetes mellitus patients is <7% HBA1C, and in selective patients <6.0%. Please refer to [place] [employer] diabetic care guidelines for further information. 14 Because ethnic data is not always readily available, this report includes an eGFR for both -Americans and non- Americans. The National Kidney Disease Education Program (NKDEP) does not endorse the use of the MDRD equation for patients that are not between the ages of 18 and 70, are , have extremes of body size, muscle mass, or nutritional status, or are non- or non-. According to the National Kidney Foundation, irrespective of diagnosis, the stage of the disease is based on the level of kidney function: Stage Description GFR(mL/min/1.73 m(2)) 1 Kidney damage with normal or decreased GFR 90 2 Kidney damage with mild decrease in GFR 60-89 3 Moderate decrease in GFR 30-59 4 Severe decrease in GFR 15-29 5 Kidney failure <15 (or dialysis) 15 Desirable: <100 Near Optimal: 100-129 Borderline High: 130-159 High: 160-189 Very High: >189 16 M25.549, M25.539 17 Negative <5 Equivocal 5 - 9 Positive >9 18 Negative <1:80 Borderline 1:80 Positive >1:80 19 A positive AMARILIS result may occur in healthy individuals (low titer) or be associated with a variety of diseases. See interpretation chart which is not all inclusive: Pattern Antigen Detected Suggested Disease Association Homogeneous DNA(ds,ss), SLE - High titers Nucleosomes, Histones Drug-induced SLE Speckled Sm, [employer]ULTANT, SCL-70, SLE,MCTD,PSS (diffuse form), SS-A/SS-B Sjogrens Nucleolar SCL-70, PM-1/SCL High titers Scleroderma, PM/DM Centromere Centromere PSS (limited form) w/Crest syndrome variable Nuclear Dot [id number] Primary Biliary Cirrhosis Nuclear [id number], Primary Biliary Cirrhosis Membrane eliecer A,B,C 20 Negative <0.91 Equivocal 0.91 - 1.09 Positive >1.09 21 Negative <0.80 Equivocal 0.80 - 1.19 Positive >1.19 IgM levels may peak at 3-6 weeks post infection, then gradually decline. Performed at: RN - [facility] [address] [id number] Stereotype Molder: Mary Bloom MD, Phone: [phone] 22 Method: Sediplast Modified Westergren 23 E11.9 E78.5 I10 24 Elevated levels of HbA1c suggest the need for more aggressive treatment of glycemia. The [place] [employer] recommends that a primary goal of therapy should be a HbA1c of <7% and that physicians should re-evaluate the treatment regimen in patients with HbA1c values consistently >8%. 25 Reference Guidelines*: Desirable: ........... < 200 mg/dL Borderline High: ..... 200-239 mg/dL High: ................ >=240 mg/dL * The National Cholesterol Education Program (NCEP) 26 Reference Guidelines*: Normal: ............. < 150 mg/dL Borderline High: .... 150-199 mg/dL High: ............... 200-499 mg/dL Very High: .......... > 500 mg/dL * Source: National Cholesterol Education Program (NCEP) 27 Reference Guidelines*: Low HDL: ..... < 40 mg/dL Normal: ..... 40-60 mg/dL Desirable: ... > 60 mg/dL *The National Cholesterol Education Program(NCEP) 28 Reference Guidelines*: Optimal:........... <100 mg/dL Near Optimal....... 100-129 mg/dL Borderline High.... 130-159 mg/dL High............... 160-189 mg/dL Very High.......... >=190 mg/dL * Source: National Cholesterol Education Program (NCEP) 29 Note: Persistent reduction for 3 months or more in an eGFR <60 mL/min/1.73 m2 defines CKD. Patients with eGFR values >/=60 mL/min/1.73 m2 may also have CKD if evidence of persistent proteinuria is present. The original MDRD equation for estimated GFR is not valid for patients less than 18 years of age. Additional information may be found at www.kdoqi.org. 30 Values below the stated reference ranges of AST and ALT can be seen in normal populations. Clinical correlation is suggested. 31 Special Crimes Investigator: [id number] 32 AA 11/18 33 Because ethnic data is not always readily available, this report includes an eGFR for both -Americans and non- Americans. The National Kidney Disease Education Program (NKDEP) does not endorse the use of the MDRD equation for patients that are not between the ages of 18 and 70, are , have extremes of body size, muscle mass, or nutritional status, or are non- or non-. According to the National Kidney Foundation, irrespective of diagnosis, the stage of the disease is based on the level of kidney function: Stage Description GFR(mL/min/1.73 m(2)) 1 Kidney damage with normal or decreased GFR 90 2 Kidney damage with mild decrease in GFR 60-89 3 Moderate decrease in GFR 30-59 4 Severe decrease in GFR 15-29 5 Kidney failure <15 (or dialysis) 34 E11.9 35 Instrument flagged sample for slide review. Less than 10% Bands seen, no other immature WBC's seen. RBC morphology essentially normal. Platelet estimate=CLUMPED 36 UNABLE TO REPORT PLT COUNT DUE TO PLT CLUMPING. HOWEVER, PLATELET ESTIMATE FROM PERIPHERAL SMEAR APPEARS WITH IN REFERENCE RANGE. 37 Note: Persistent reduction for 3 months or more in an eGFR <60 mL/min/1.73 m2 defines CKD. Patients with eGFR values >/=60 mL/min/1.73 m2 may also have CKD if evidence of persistent proteinuria is present. The original MDRD equation for estimated GFR is not valid for patients less than 18 years of age. Additional information may be found at www.kdoqi.org. 38 Reference Guidelines*: Desirable: ........... < 200 mg/dL Borderline High: ..... 200-239 mg/dL High: ................ >=240 mg/dL * The National Cholesterol Education Program (NCEP) 39 Reference Guidelines*: Normal: ............. < 150 mg/dL Borderline High: .... 150-199 mg/dL High: ............... 200-499 mg/dL Very High: .......... > 500 mg/dL * Source: National Cholesterol Education Program (NCEP) 40 Reference Guidelines*: Low HDL: ..... < 40 mg/dL Normal: ..... 40-60 mg/dL Desirable: ... > 60 mg/dL *The National Cholesterol Education Program(NCEP) 41 Reference Guidelines*: Optimal:........... <100 mg/dL Near Optimal....... 100-129 mg/dL Borderline High.... 130-159 mg/dL High............... 160-189 mg/dL Very High.......... >=190 mg/dL * Source: National Cholesterol Education Program (NCEP) 42 Elevated levels of HbA1c suggest the need for more aggressive treatment of glycemia. The [place] [employer] recommends that a primary goal of therapy should be a HbA1c of <7% and that physicians should re-evaluate the treatment regimen in patients with HbA1c values consistently >8%. 43 Elevated levels of HbA1c suggest the need for more aggressive treatment of glycemia. The [place] [employer] recommends that a primary goal of therapy should be a HbA1c of <7% and that physicians should re-evaluate the treatment regimen in patients with HbA1c values consistently >8%. 44 Note: Persistent reduction for 3 months or more in an eGFR <60 mL/min/1.73 m2 defines CKD. Patients with eGFR values >/=60 mL/min/1.73 m2 may also have CKD if evidence of persistent proteinuria is present. The original MDRD equation for estimated GFR is not valid for patients less than 18 years of age. Additional information may be found at www.kdoqi.org. 45 Reference Guidelines*: Desirable: ........... < 200 mg/dL Borderline High: ..... 200-239 mg/dL High: ................ >=240 mg/dL * The National Cholesterol Education Program (NCEP) 46 Reference Guidelines*: Normal: ............. < 150 mg/dL Borderline High: .... 150-199 mg/dL High: ............... 200-499 mg/dL Very High: .......... > 500 mg/dL * Source: National Cholesterol Education Program (NCEP) 47 Reference Guidelines*: Low HDL: ..... < 40 mg/dL Normal: ..... 40-60 mg/dL Desirable: ... > 60 mg/dL *The National Cholesterol Education Program(NCEP) 48 Reference Guidelines*: Optimal:........... <100 mg/dL Near Optimal....... 100-129 mg/dL Borderline High.... 130-159 mg/dL High............... 160-189 mg/dL Very High.......... >=190 mg/dL * Source: National Cholesterol Education Program (NCEP) 49 Elevated levels of HbA1c suggest the need for more aggressive treatment of glycemia. The [place] [employer] recommends that a primary goal of therapy should be a HbA1c of <7% and that physicians should re-evaluate the treatment regimen in patients with HbA1c values consistently >8%. 50 Elevated levels of HbA1c suggest the need for more aggressive treatment of glycemia. The [place] [employer] recommends that a primary goal of therapy should be a HbA1c of <7% and that physicians should re-evaluate the treatment regimen in patients with HbA1c values consistently >8%. 51 Note: Persistent reduction for 3 months or more in an eGFR <60 mL/min/1.73 m2 defines CKD. Patients with eGFR values >/=60 mL/min/1.73 m2 may also have CKD if evidence of persistent proteinuria is present. The original MDRD equation for estimated GFR is not valid for patients less than 18 years of age. Additional information may be found at www.kdoqi.org. 52 Reference Guidelines*: Desirable: ........... < 200 mg/dL Borderline High: ..... 200-239 mg/dL High: ................ >=240 mg/dL * The National Cholesterol Education Program (NCEP) 53 Reference Guidelines*: Normal: ............. < 150 mg/dL Borderline High: .... 150-199 mg/dL High: ............... 200-499 mg/dL Very High: .......... > 500 mg/dL * Source: National Cholesterol Education Program (NCEP) 54 Reference Guidelines*: Low HDL: ..... < 40 mg/dL Normal: ..... 40-60 mg/dL Desirable: ... > 60 mg/dL *The National Cholesterol Education Program(NCEP) 55 Reference Guidelines*: Optimal:........... <100 mg/dL Near Optimal....... 100-129 mg/dL Borderline High.... 130-159 mg/dL High............... 160-189 mg/dL Very High.......... >=190 mg/dL * Source: National Cholesterol Education Program (NCEP) 56 Note: Persistent reduction for 3 months or more in an eGFR <60 mL/min/1.73 m2 defines CKD. Patients with eGFR values >/=60 mL/min/1.73 m2 may also have CKD if evidence of persistent proteinuria is present. The original MDRD equation for estimated GFR is not valid for patients less than 18 years of age. Additional information may be found at www.kdoqi.org. 57 Elevated levels of HbA1c suggest the need for more aggressive treatment of glycemia. The [place] [employer] recommends that a primary goal of therapy should be a HbA1c of <7% and that physicians should re-evaluate the treatment regimen in patients with HbA1c values consistently >8%. 58 OPERATION/PROCEDURE Left inguinal hernia repair with mesh DIAGNOSIS: "LIPOMA OF CORD, LEFT INGUINAL": MATURE ADIPOSE AND FIBROUS TISSUE. [place] GROSS Received in formalin labeled, "LIPOMA OF CORD, LEFT INGUINAL". It consists of an irregular yellow-joyce soft adipose tissue measuring 3.5 x 3.0 x 0.8 cm. The specimen is received without orientation. The specimen is serially sectioned. On cut surface it reveals yellow adipose tissue admixed with joyce, fibrotic tissue. Butcher sections are submitted in one block. HW/clf MICROSCOPIC Section show mature adipose and fibrous tissue. PRE OPERATIVE DIAGNOSIS Left inguinal hernia REVIEW CODE CODE: I Signed Electronically signed FRANCY NIETO MD 01/23/14 1454 59 Note: Persistent reduction for 3 months or more in an eGFR <60 mL/min/1.73 m2 defines CKD. Patients with eGFR values >/=60 mL/min/1.73 m2 may also have CKD if evidence of persistent proteinuria is present. The original MDRD equation for estimated GFR is not valid for patients less than 18 years of age. Additional information may be found at www.kdoqi.org. 60 A1c value between 5.7% and 6.4% is considered at increased risk for diabetes. A1c value greater than 6.5 % is considered essentially diagnostic for Type II diabetes. Current guidelines recommend a treatment goal of <7% for diabetic patients. This method will measure glycosylated hemoglobin variants, HbS, HbG , HbH, HbWayne, HbC, HbE, etc. Other hemoglobin- opathies may give incorrect results with this test. 61 THIS ASSAY IS NOT INTENDED A CANCER SCREENING TEST The concentration of PSA in a given specimen, determined with assays from different manufacturers, can vary due to differences in assay methods and reagent specificity. Values obtained from different assay methods cannot be used interchangeably. 62 A1c value between 5.7% and 6.4% is considered at increased risk for diabetes. A1c value greater than 6.5 % is considered essentially diagnostic for Type II diabetes. Current guidelines recommend a treatment goal of <7% for diabetic patients. This method will measure glycosylated hemoglobin variants, HbS, HbG , HbH, HbWayne, HbC, HbE, etc. Other hemoglobin- opathies may give incorrect results with this test. 63 Note: Persistent reduction for 3 months or more in an eGFR <60 mL/min/1.73 m2 defines CKD. Patients with eGFR values >/=60 mL/min/1.73 m2 may also have CKD if evidence of persistent proteinuria is present. The original MDRD equation for estimated GFR is not valid for patients less than 18 years of age. Additional information may be found at www.kdoqi.org. 64 HDL Interpretation: Undesirable: High Risk: Less than 40 mg/dL Desirable: Low Risk: Greater than 60 mg/dL 65 LDL Interpretation: Low Risk Optimal Level: LDL Less than 100 mg/dL Near or Above Optimal: LDL 100-129 mg/dL Borderline High Risk: LDL 130-159 mg/dL High Risk : LDL 160-189 mg/dL Very High Risk: LDL Greater than 189 mg/dL 66 Because ethnic data is not always readily available, this report includes an eGFR for both -Americans and non- Americans. The National Kidney Disease Education Program (NKDEP) does not endorse the use of the MDRD equation for patients that are not between the ages of 18 and 70, are , have extremes of body size, muscle mass, or nutritional status, or are non- or non-. According to the National Kidney Foundation, irrespective of diagnosis, the stage of the disease is based on the level of kidney function: Stage Description GFR(mL/min/1.73 m(2)) 1 Kidney damage with normal or decreased GFR 90 2 Kidney damage with mild decrease in GFR 60- 89 3 Moderate decrease in GFR 30-59 4 Severe decrease in GFR 15-29 5 Kidney failure <15 (or dialysis) 67 Therapeutic target for the treatment of diabetes Mellitus patients is <7% HBA1C, and in selective patients <6.0%.Please refer to [place] [employer] Diabetic care guidelines for further information. 68 HDL Interpretation: Undesirable: High Risk: Less than 40 MG/DL Desirable: Low Risk: Greater than 60 MG/DL 69 LDL Interpretation: Low Risk Optimal Level: LDL Less than 100 MG/DL Near or Above Optimal: LDL 100-129 MG/DL Borderline High Risk: LDL 130-159 MG/DL High Risk : LDL 160-189 MG/DL Very High Risk: LDL Greater than 189 MG/DL 70 Serum levels of PSA measured using the Kim Sinequa DXI Hybritech immunoassay should not be interpreted as absolute evidence of the presence or absence of disease. The PSA value should be used in conjunction with other pertinent clinical diagnostic procedures. The values obtained with different assay methods or kits cannot be used interchangeably. 71 Therapeutic target for the treatment of diabetes Mellitus patients is <7% HBA1C, and in selective patients <6.0%.Please refer to [place] [employer] Diabetic care guidelines for further information. 72 Because ethnic data is not always readily available, this report includes an eGFR for both -Americans and non- Americans. The National Kidney Disease Education Program (NKDEP) does not endorse the use of the MDRD equation for patients that are not between the ages of 18 and 70, are , have extremes of body size, muscle mass, or nutritional status, or are non- or non-. According to the National Kidney Foundation, irrespective of diagnosis, the stage of the disease is based on the level of kidney function: Stage Description GFR(mL/min/1.73 m(2)) 1 Kidney damage with normal or decreased GFR 90 2 Kidney damage with mild decrease in GFR 60- 89 3 Moderate decrease in GFR 30-59 4 Severe decrease in GFR 15-29 5 Kidney failure <15 (or dialysis) 73 A metabolite of Naproxen, O-desmethylnaproxen, has been shown to interfere with the Jendrassik-Xavier method for measuring total bilirubin. Samples from patients who have taken Naproxen have shown spurious elevation in total bilirubin levels. 74 Please note updated reference range, effective 10/18/09 75 CHOLESTEROL INTERPRETATION: Desirable: Less than 200 MG/DL Borderline-High Risk: 200-239 MG/DL High-Risk: 240 MG/DL and over 76 HDL INTERPRETATION: Undesirable: High Risk: Less than 40 MG/DL Desirable: Low Risk: Greater than 60 MG/DL 77 LDL INTERPRETATION: Low Risk Optimal Level: LDL Less than 100 MG/DL Near or Above Optimal: LDL 100-129 MG/DL Borderline High Risk: LDL 130-159 MG/DL High Risk : LDL 160-189 MG/DL Very High Risk: LDL Greater than 189 MG/DL 78 Anion gap measurement may be of limited value in the presence of any alkalosis, especially in a combined acid base disorder. . 79 Because ethnic data is not always readily available, this report includes an eGFR for both -Americans and non- Americans. The National Kidney Disease Education Program (NKDEP) does not endorse the use of the MDRD equation for patients that are not between the ages of 18 and 70, are , have extremes of body size, muscle mass, or nutritional status, or are non- or non-. According to the National Kidney Foundation, irrespective of diagnosis, the stage of the disease is based on the level of kidney function: Stage Description GFR(mL/min/1.73 m(2)) 1 Kidney damage with normal or decreased GFR 90 2 Kidney damage with mild decrease in GFR 60- 89 3 Moderate decrease in GFR 30-59 4 Severe decrease in GFR 15-29 5 Kidney failure <15 (or dialysis) 80 THERAPEUTIC TARGET FOR THE TREATMENT OF DIABETES MELLITUS PATIENTS IS <7% HBA1C, AND IN SELECTIVE PATIENTS <6.0%. PLEASE REFER TO [place] [employer] DIABETIC CARE GUIDELINES FOR FURTHER INFORMATION. 81 A1c value between 5.7% and 6.4% is considered at increased risk for diabetes. A1c value greater than 6.5 % is considered essentially diagnostic for Type II diabetes. Current guidelines recommend a treatment goal of <7% for diabetic patients. This method will measure glycosylated hemoglobin variants, HbS, HbG , HbH, HbWayne, HbC, HbE, etc. Other hemoglobin- opathies may give incorrect results with this test. Procedures Date Code Description Status 02/01/2018 67092 Eye Exam Est Patient Comprehensive Completed 12/17/2017 42259 Eye Exam Est Patient Comprehensive Completed 12/10/2016 88115 Eye Exam Est Patient Comprehensive Completed 11/07/2016 89593 EKG-Tracing And Report Completed 11/01/2015 32233 Eye Exam New Patient Comprehensive Completed 05/24/2014 15515 Stress Test Interpre And Report Only Completed 05/24/2014 10533 Stress Test Physician Super Only Completed 05/24/2014 95811 Stress Test Physician Super Only Completed 05/24/2014 99322 Myocardial Imaging Tomographic Multiple Study AT Rest Completed Or Stress 01/20/2014 58455 Repair Initial Inguinal Hernia/ Age 5 Or Over/Reducible Completed 01/20/2014 39938 Anesthesia, Repair Hernia Lower Abdomen Completed 01/16/2014 82704 EKG Interpretation And Report Only Completed 06/10/2010 30865 Myocardial Imaging Tomographic Multiple Study AT Rest Completed Or Stress 06/10/2010 47336 Stress Test Physician Super Only Completed 06/10/2010 16048 Stress Test Interpre And Report Only Completed 01/29/2010 35485 Colonoscopy Completed 01/28/2010 [id number] Colonoscopy Completed 02/01/2009 64488 Stress Test Interpre And Report Only Completed 02/01/2009 81136 Ejection Fraction Completed 02/01/2009 87764 Myocardial Wall Motion Completed 02/01/2009 26260 Cardiolite Stress/Rest Spect Completed 01/05/2008 65619 EKG Interpretation And Report Only Completed 12/01/2007 54498 EKG-Tracing And Report Completed 09/15/2006 71956 EKG-Tracing And Report Completed 07/27/2006 48986 EKG-Tracing And Report Completed 03/30/1994 52084219 Flexible Sigmoidoscopy Completed Encounters Type Date Location Provider Dx Diagnosis Office Visit 12/17/2017 Primary Care Eileen, B02.9 Zoster without 9:45a Office CORRINA Abarca complications D64.9 Anemia, unspecified E11.9 Type 2 diabetes mellitus without complications E78.5 Hyperlipidemia, unspecified I10 Essential (primary) hypertension Office Visit 04/29/2017 9:30a Primary Care Eileen M06.4 [facility] G56.03 Carpal tunnel syndrome, bilateral upper limbs Office Visit 04/21/2017 9:15a Primary Care Bob M25.549 Pain in joints of Office Jeannette Riley unspecified hand M25.539 Pain in unspecified wrist Office Visit 12/25/2016 9:30a Primary Care Eileen, E11.9 Type 2 diabetes Office CORRINA Abarca mellitus without complications E78.5 Hyperlipidemia, unspecified I10 Essential (primary) hypertension Z23 Encounter for immunization Office Visit 11/07/2016 Cardiology Lucia, Z01.810 Encounter for 9:00a Office Salma Zavala preprocedural PA cardiovascular examination 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 E78.5 Hyperlipidemia, unspecified I10 Essential (primary) hypertension R00.1 Bradycardia, unspecified Office Visit 09/24/2016 11:30a [facility] [place], 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, [facility]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, lumbar region M25.552 Pain in left hip Z23 Encounter for immunization Office Visit 06/24/2016 9:45a [facility] [place], E11.9 Type 2 diabetes Office Rima, RPAC mellitus without complications I10 Essential (primary) hypertension E78.5 Hyperlipidemia, unspecified 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 Office Visit 02/13/2016 9:00a Primary Care [place], E11.9 Type 2 diabetes Office Rima, RPAC mellitus without complications I10 Essential (primary) hypertension E78.5 Hyperlipidemia, unspecified Office Visit 10/09/2015 9:45a Primary Care [place], E11.9 Type 2 diabetes Office Rima, RPAC mellitus without complications I10 Essential (primary) hypertension 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 E78.5 Hyperlipidemia, unspecified M62.838 Other muscle spasm Office Visit 05/30/2015 10:30a Primary Care [place], E11.9 Type 2 diabetes Office Rima, RPAC mellitus without complications M79.673 Pain in unspecified foot Office Visit 03/27/2015 10:30a Primary [facility] [place], M79.673 Pain in unspecified Office Rima, RPAC foot Office Visit 01/29/2015 10:00a Primary Care [place], E11.9 Type 2 diabetes Office Rima, RPAC mellitus without complications I10 Essential (primary) hypertension 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 Office Visit 09/13/2014 10:00a Primary Care [place], 250.00 Diabetes Mellitus Office Rima, RPA W/O Compl Type II Or Unspec Controlled 401.1 Hypertension Benign 309.89 Adjustment Reaction Other Spec Office Visit 12/14/2013 11:00a Surgical Office Tomas, 550.90 Hernia Inguinal Dean Ambrose, W/O Obstruct Or M.D. Gangrene Unilateral Unspec Office Visit 01/09/2010 10:45a Surgical Office Tomas, 787.99 Digestive Dean Ambrose, Symptoms Other M.D. V76.51 Special Screening For Malignant Neoplasms Colon Office Visit 07/31/2008 Cardiology Lili, 414.01 Coronary 9:00a Office Sunny Jama M.D., Atherosclerosis FAC [place] 401.1 Hypertension Benign 272.4 Hyperlipidemia Other Unspec Office Visit 01/31/2008 Cardiology Lili 414.01 Coronary 11:15a Office Sunny Jama M.D., Atherosclerosis FACC [place] 401.1 Hypertension Benign 272.4 Hyperlipidemia Other Unspec Office Visit 12/31/2007 Cardiology Lili 414.01 Coronary 10:15a Office Sunny Jama M.D., Atherosclerosis FACC [place] 401.1 Hypertension Benign Office Visit 12/01/2007 Cardiology Lili, 414.01 Coronary 9:45a Office Sunny Jama M.D., Atherosclerosis FACC [place] 250.02 Diabetes Mellitus W/O Compl Type II Or Unspec Type Uncontrol 401.1 Hypertension Benign 272.4 Hyperlipidemia Other Unspec Plan of Treatment Future Appointment(s):02/04/2019 9:30 am - Curtis Watkins MD at [id number]/ 10/2019 - Rima Arellano, RPACM06.4 Inflammatory polyarthropathyNew Labs:Bone /Joint Profile, Scheduled: 04/08/18C-Reactive Protein,Quant, Scheduled: Liver Function Tests, Scheduled: 04/08/18Comments:Has been evaluated by rheumatology, Dr Serna far diagnosis is unclear ... recheck labsHas beentaking MTX and folic acid since 12/2017.E11.9 Type 2 diabetes mellitus without complicationsNew Labs:Glycohemoglobin A1c, Scheduled: 04/08/18Comments: Continue Metformin ER 500mg [id number] Essential (primary) hypertensionNew Labs: Basic Metabolic Panel, Scheduled: 04/08/18Comments:Current medication(s): Lisinopril HCT 20-12.5mg lcjioF64.01 Carpal tunnel syndrome, right upper limbComments:EMG/NCV 06/24/17 Referral for evaluation, Dr Oliva
[2018-04-30 10:35] VITALS: BP 132/72
--- NOTE | 2018-04-30 12:23 | UC ---
Lower Extremity/Ankle HPI - HPI Summary HPI Summary: 72-year-old male here with a chief complaint of left foot pain. This started several weeks ago on the ball of his foot under knee is first metatarsal. Pains getting worse over time. It's worse when he puts any weight on it or touches it. No known trauma. He reports that he wears shoes also time and he doesn't think he got a foreign body in it but is not sure. Today he looked at it and he noticed it was swollen. No fevers or chills feels well otherwise. Patient does have type 2 diabetes he is not on insulin. He does not have any paresthesias of his feet. - History of Current Complaint Chief Complaint: UCLowerExtremity Stated Complaint: LEFT FOOT CONCERN Time Seen by Provider: 04/30/18 12:22 Pain Intensity: 5 - Allergies/Home Medications Allergies/Adverse Reactions: Allergies Allergy/AdvReac Type Severity Reaction Status Date / Time No Known Allergies Allergy Verified 04/30/18 10:30 Home Medications: Home Medications Irbesartan 75 mg PO DAILY 04/30/18 [History Confirmed 04/30/18] PMH/Surg Hx/FS Hx/Imm Hx Previously Healthy: Yes Endocrine History: Diabetes Cardiovascular History: Hypertension GI/ History: Gastroesophageal Reflux - Surgical History Surgical History: Yes Surgery Procedure, Year, and Place: heart stents 2006. back surgery - Family History Known Family History: Positive: Non-Contributory - Social History Alcohol Use: None Substance Use Type: None Smoking Status (MU): Former Smoker When Did the Patient Quit Smoking/Using Tobacco: 2006 Review of Systems All Other Systems Reviewed And Are Negative: Yes Constitutional: Positive: Negative Skin: Positive: Other - SEE HPI ENT: Positive: Negative Respiratory: Positive: Negative Cardiovascular: Positive: Negative Gastrointestinal: Positive: Negative Motor: Positive: Negative Neurovascular: Positive: Negative Musculoskeletal: Positive: Other: - SEE HPI Neurological: Positive: Negative Psychological: Positive: Negative Is Patient Immunocompromised?: No Physical Exam Triage Information Reviewed: Yes Appearance: Well-Appearing, No Pain Distress, Well-Nourished Vital Signs: Initial Vital Signs Temp 98 F 04/30/18 10:25 Pulse 66 04/30/18 10:25 Resp 16 04/30/18 10:25 BP 132/72 04/30/18 10:25 Pulse Ox 99 04/30/18 10:25 Vital Signs Reviewed: Yes Eye Exam: Normal Eyes: Positive: Conjunctiva Clear Neck exam: Normal Neck: Positive: Supple Respiratory: Positive: No respiratory distress Musculoskeletal: Positive: Strength Intact, ROM Intact Neurological: Positive: Alert, Muscle Tone Normal Psychological Exam: Normal Psychological: Positive: Age Appropriate Behavior Skin: Positive: Other - Left foot left foot on the sole of the ball has a blister that's 2 cm in diameter. It appears to have air in it and not pus or other fluid. There is some ecchymosis in the middle. This is all in the middle of A callus. There is no streaking there is no drainage. The rest of the foot is normal capillary refill. The area is not hot to touch. Lower Extremity Course/Dx - Course Course Of Treatment: Order Information: FOOT LEFT 3+ VWS. Accession Number: [id number]. CPT: 89365. INDICATION: Foreign body left foot. TECHNIQUE: 3 views of the left foot were obtained. FINDINGS: The bones are in normal alignment. No fracture is seen. No radiopaque foreign. body is seen. IMPRESSION: NO RADIOPAQUE FOREIGN BODY IS SEEN. . <Electronically signed by Claudio Crane MD in [facility]> 04/30/18 1149. I discussed the x-ray report with the patient. No foreign body seen on x-ray. On examination I did not appreciate any foreign body. The blister does not appear to have any pus or fluid in. It may be a friction blister that's giving him more pain. Redness starts both topical and by mouth antibiotics and have him follow-up with podiatry or his primary care doctor. - Differential Dx/Diagnosis Provider Diagnosis: Blister of left foot, Left foot pain Discharge - Sign-Out/Discharge Documenting (check all that apply): Patient Departure All imaging exams completed and their final reports reviewed: No Studies - Discharge Plan Condition: Stable Disposition: HOME Prescriptions: Amoxicillin/Clavulanate TAB* [Augmentin TAB 875*] 875 mg PO BID #20 tab Mupirocin 1 applic TOPICAL BID #22 gm Patient Education Materials: Foot Care for People with Diabetes (ED), Blister ( ED) Referrals: Rima Arellano PA [Primary Care Provider] - Additional Instructions: FOLLOW UP WITH YOUR PRIMARY CARE DOCTOR OR SWIM INSTRUCTOR. GET RECHECKED SOONER WITH ANY WORSENING OF YOUR CONDITION; INFECTION, FEVER, PAIN, YOU FEEL ILL OR QUESTIONS OR CONCERNS. - Billing Disposition and Condition Condition: STABLE Disposition: Home
== END 2018-04-30 12:49 | disposition home or self-care (01) ==
LOC: UCCORT 10:08
DX: S90.822A Blister (nonthermal), left foot, initial encounter (principal); S90.821A Blister (nonthermal), right foot, initial encounter; M79.672 Pain in left foot; I10 Essential (primary) hypertension; E11.9 Type 2 diabetes mellitus without complications; Z79.899 Other long term (current) drug therapy; Z87.891 Personal history of nicotine dependence; X58.XXXA Exposure to other specified factors, initial encounter; Y92.9 Unspecified place or not applicable
CPT/HCPCS: 99212; G0463

== ENCOUNTER 2018-10-15 15:19 | Emergency (ER) | payer BC ==
[2018-10-15 15:34] VITALS: BP 117/71
--- NOTE | 2018-10-15 15:49 | UC ---
Skin Complaint HPI - HPI Summary HPI Summary: Pt presents with concern for shingles "outbreak" on bilateral forearms and chest and top of right side scalp. Pt states that "sores" on scalp are only only tender when touched. - History of Current Complaint Chief Complaint: UCSkin Time Seen by Provider: 10/15/18 15:27 Stated Complaint: SKIN COMP Hx Obtained From: Patient Onset/Duration: Gradual Onset, Lasting Days, Still Present Skin Exposure Onset/Duration: Days Ago Timing: Constant Onset Severity: Mild Current Severity: Mild Pain Intensity: 0 Location: Diffuse - bilateral forearms, scalp, and left side of anterior chest Character: Redness, Raised, Painful Aggravating Factor(s): Touch Alleviating Factor(s): Nothing Associated Signs & Symptoms: Positive: Tenderness - Allergy/Home Medications Allergies/Adverse Reactions: Allergies Allergy/AdvReac Type Severity Reaction Status Date / Time No Known Allergies Allergy Verified 10/15/18 15:29 Home Medications: Home Medications Aspirin EC TAB* [Ecotrin EC Low Dose 81 MG*] 81 mg PO DAILY 10/15/18 [History Confirmed 10/15/18] Atorvastatin* [Lipitor*] 40 mg PO QPM 10/15/18 [History Confirmed 10/15/18] Clopidogrel TAB* [Plavix TAB*] 75 mg PO DAILY 10/15/18 [History Confirmed ] Gabapentin CAP(*) [Neurontin 300 CAP(*)] 300 mg PO BID 10/15/18 [History Confirmed 10/15/18] Lisinopril/HCTZ 20/12.5(NF) [Zestoretic 20/12.5(NF)] 1 tab PO DAILY 10/15/18 [ History Confirmed 10/15/18] Methotrexate TAB* 5 tab PO WEEKLY 10/15/18 [History Confirmed 10/15/18] Omeprazole 20 mg PO DAILY 10/15/18 [History Confirmed 10/15/18] metFORMIN* [Glucophage 850 MG TAB *] 850 mg PO DAILY 10/15/18 [History Confirmed 10/15/18] PMH/Surg Hx/FS Hx/Imm Hx Previously Healthy: Yes - Surgical History Surgical History: Yes Surgery Procedure, Year, and Place: heart stents 2006. back surgery - Family History Known Family History: Positive: Non-Contributory - Social History Occupation: Retired Lives: With Family Alcohol Use: None Substance Use Type: None Smoking Status (MU): Former Smoker Have You Smoked in the Last Year: No When Did the Patient Quit Smoking/Using Tobacco: 2006 - Immunization History Vaccination Up to Date: Yes Review of Systems All Other Systems Reviewed And Are Negative: Yes Constitutional: Positive: Negative Skin: Positive: Other - rash on scalp and "bug bites" on bilateral forearms Eyes: Positive: Negative ENT: Positive: Negative Respiratory: Positive: Negative Cardiovascular: Positive: Negative Gastrointestinal: Positive: Negative Genitourinary: Positive: Negative Motor: Positive: Negative Neurovascular: Positive: Negative Musculoskeletal: Positive: Negative Neurological: Positive: Negative Psychological: Positive: Negative Is Patient Immunocompromised?: No Physical Exam Triage Information Reviewed: Yes Appearance: Well-Appearing Vital Signs: Initial Vital Signs Temp 97.3 F 10/15/18 15:32 Pulse 72 10/15/18 15:32 Resp 16 10/15/18 15:32 BP 117/71 10/15/18 15:32 Pulse Ox 96 10/15/18 15:32 Vital Signs Reviewed: Yes Eye Exam: Normal ENT Exam: Normal ENT: Positive: Hearing grossly normal Dental Exam: Normal Neck exam: Normal Respiratory Exam: Normal Respiratory: Positive: No respiratory distress Musculoskeletal Exam: Normal Neurological Exam: Normal Psychological Exam: Normal Skin Exam: Other - pus filled folliculitis on scalp. Healing wounds on bilateral forearms. Course/Dx - Diagnoses Provider Diagnosis: Folliculitis Discharge - Sign-Out/Discharge Documenting (check all that apply): Patient Departure All imaging exams completed and their final reports reviewed: No Studies - Discharge Plan Condition: Stable Disposition: HOME Patient Education Materials: Folliculitis (ED) Referrals: Rima Arellano PA [Primary Care Provider] - If Needed - Billing Disposition and Condition Condition: STABLE Disposition: Home
== END 2018-10-15 15:55 | disposition home or self-care (01) ==
LOC: UCCORT 15:19
DX: L73.9 Follicular disorder, unspecified (principal); Z87.891 Personal history of nicotine dependence
CPT/HCPCS: 99211; G0463